=== PATIENT | female | born 1985 | race Caucasian/White ===

== ENCOUNTER 2023-06-23 10:10 | Outpatient (OUT) | payer MEDICAID, SELFPAY ==
--- NOTE | 2023-06-23 10:15 | US_ITS ---
The [address] [address] Patient Name: ADOLFO PRESTON MRN: [id number] date: 1985 Sex: F Assigned Patient Location: US Current Patient Location: US Accession/Order Number: [id number] Exam Date: 06/23/2023 10:17 Report Date: 06/23/2023 10:43 At the request of: DAVID SO Procedure: US extremity nonvascular LT EXAM: US extremity nonvascular LT HISTORY: Left arm skin lump R22.32 COMPARISON: None. TECHNIQUE: Real-time ultrasonographic examination of the upper left arm was performed, including color Doppler imaging. FINDINGS: There is a 6.1 x 4.9 x 1.8 cm well marginated isoechoic focus with good through transmission in the subcutaneous tissues in the region of interest, most likely representing a lipoma. No abnormal vascularity is seen. No evidence of abnormal fluid collection. US/US extremity nonvascular LT IMPRESSION: 6.1 x 4.9 x 1.8 cm probable lipoma in the area of interest in the left upper arm. Electronically authenticated by: MERLIN WATSON Date: 06/23/2023 10:43
== END 2023-06-23 10:11 | disposition home or self-care (01) ==
LOC: US 10:10
PROVIDERS: PCP Nurse Practitioner; Visit Provider Nurse Practitioner
DX: R22.32 Localized swelling, mass and lump, left upper limb (principal)
CPT/HCPCS: 76882

== ENCOUNTER 2023-06-23 10:28 | Outpatient (OUT) | payer MEDICAID, SELFPAY ==
[2023-06-23 13:51] LABS: Free T3 1.23 pg/mL (2.18-3.98); Thyroid Stimulating Hormone 13.814 uIU/mL (0.358-3.740)
[2023-06-23 14:10] LABS: Free T4 0.42 ng/dL (0.76-1.46)
== END 2023-06-23 10:29 | disposition home or self-care (01) ==
LOC: LAB 10:29
PROVIDERS: PCP Nurse Practitioner; Visit Provider Internal Medicine
DX: R22.32 Localized swelling, mass and lump, left upper limb (principal); E05.00 Thyrotoxicosis with diffuse goiter without thyrotoxic crisis or storm; E55.9 Vitamin D deficiency, unspecified
CPT/HCPCS: 36415; 76882; 82306; 84439; 84443; 84481

== ENCOUNTER 2023-08-18 19:08 | Outpatient (REF) | payer MEDICAID, SELFPAY ==
[2023-08-24 11:08] LABS: Age Gdln ACOG Testing Note (.); HPV Aptima Negative (Negative); IGP, Aptima HPV, rfx 16/18,45 Note (.)
== END 2023-08-18 19:09 | disposition home or self-care (01) ==
LOC: LAB 19:08
PROVIDERS: PCP Nurse Practitioner; Visit Provider Obstetrics & Gynecology
DX: Z01.419 Encounter for gynecological examination (general) (routine) without abnormal findings (principal)
CPT/HCPCS: 87624; G0145

== ENCOUNTER 2023-12-17 10:10 | Outpatient (OUT) | payer MEDICAID, SELFPAY ==
--- OUTSIDE RECORDS SUMMARY | 2023-12-17 10:14 | XMS_ITS | CCD ---
Author Name Unknown Address [address] [place] [address] Organization [facility] Care Team Providers Care Pharmaceutical Salesperson Name Role Phone Annemarie Prater Unavailable Debby, Elfego Unavailable [phone] Rosa Olivo Unavailable AICHHOLZ, BIOLOGICAL SCIENCE TECHNICIAN FISH DAVID Attending Unavailable AICHHOLZ, BIOLOGICAL SCIENCE TECHNICIAN FISH DAVID Admitting Unavailable AICHHOLZ, BIOLOGICAL SCIENCE TECHNICIAN FISH DAVID Primary Care Unavailable AICHHOLZ, BIOLOGICAL SCIENCE TECHNICIAN FISH DAVID Consulting Unavailable AICHHOLZ, BIOLOGICAL SCIENCE TECHNICIAN FISH DAVID Primary Care Unavailable BERYL, DR BELKIS Perkins Consulting Unavaileugene e BERYL, DR BELKIS Perkins Attending Unavaileugene CORDOBA, DR BELKIS Perkins Admitting Unavailabl e DEEPAK WILLIAMSON Consulting Unavailable AICHHOLZ, BIOLOGICAL SCIENCE TECHNICIAN FISH DAVID Primary Care Unavailable JAGJIT ., DR GALVAN Admitting Unavailable JAGJIT ., DR GALVAN Consulting Unavailable JAGJIT ., DR GALVAN Attending Unavailable JAGJIT ., DR GALVAN Admitting Unavailable JAGJIT ., DR GALVAN Attending Unavailable AICHHOLZ, BIOLOGICAL SCIENCE TECHNICIAN FISH DAVID Primary Care Unavailable AICHHOLZ, BIOLOGICAL SCIENCE TECHNICIAN FISH DAVID Primary Care Unavailable JAGJIT ., DR GALVAN Admitting Unavailable JAGJIT ., DR GALVAN Consulting Unavailable JAGJIT ., DR GALVAN Attending Unavailable AGUBOSIM, ANABELLA Consulting Unavailable HEAVENLY AMATO Consulting Unavailable JUNGERMANN, ANTONINO Consulting Unavailable AICHHOLZ, BIOLOGICAL SCIENCE TECHNICIAN FISH DAVID Attending Unavailable AICHHOLZ, BIOLOGICAL SCIENCE TECHNICIAN FISH DAVID Admitting Unavailable AICHHOLZ, BIOLOGICAL SCIENCE TECHNICIAN FISH DAVID Primary Care Unavailable AICHHOLZ, BIOLOGICAL SCIENCE TECHNICIAN FISH DAVID Consulting Unavailable AICHHOLZ, BIOLOGICAL SCIENCE TECHNICIAN FISH DAVID Attending Unavailable AICHHOLZ, BIOLOGICAL SCIENCE TECHNICIAN FISH DAVID Admitting Unavailable AICHHOLZ, BIOLOGICAL SCIENCE TECHNICIAN FISH DAVID Primary Care Unavailable AICHHOLZ, BIOLOGICAL SCIENCE TECHNICIAN FISH DAVID Consulting Unavailable AKI ARZATE Consulting Unavailable AICHHOLZ, BIOLOGICAL SCIENCE TECHNICIAN FISH DAVID Consulting Unavailable AICHHOLZ, BIOLOGICAL SCIENCE TECHNICIAN FISH DAVID Attending Unavailable OLVINHOLJosephine, PRASHANTH DAVID Admitting Unavailable OLVINHOLZ, BIOLOGICAL SCIENCE TECHNICIAN FISH DAVID Primary Care Unavailable OLVINHOLZ, BIOLOGICAL SCIENCE TECHNICIAN FISH DAVID Consulting Unavailable OLVINHOLJosephine, BIOLOGICAL SCIENCE TECHNICIAN FISH DAVID Attending Unavailable OLVINHOLJosephine, PRASHANTH DAVID Admitting Unavailable AICKaylaHOLZ, BIOLOGICAL SCIENCE TECHNICIAN FISH DAVID Primary Care Unavailable JAGJIT ., DR GALVAN Admitting Unavailable JAGJIT ., DR GALVAN Consulting Unavailable JAGJIT ., DR GALVAN Attending Unavailable SARAY, PRASHANTH DAVID Primary Care Unavailable Amy FREEMAN Attending Unavailable Marilu Bello Attending Unavailable MAUDE FLYNN Attending Unavailable Allergies Allergy Classification Reported Allergen(s) Allergy Type Date of Onset Reaction(s) Facility (6 sources) Penicillin G Drug Allergy rash/itching [facility] Other (1 source) Penicillins Drug allergy (disorder) 4 [facility] Repository Medications Current Medications Medication Drug Class(es) Dates Sig (Normalized) Sig (Original) Darlyn Allergy 180 MG (1 source) take 1 tablet by mouth once daily Darlyn Allergy 180 MG 1 tablet Swallow whole with water; do not take with fruit juices. Orally Once a day Active dexlansoprazole 60 mg delayed release oral capsule (1 source) Proton Pump Inhibitor Start: 04-16-2022 take 1 capsule by mouth every twenty-four hours Dexlansoprazole 60 MG 1 capsule Orally Once a day for 30 day(s) Mar, Active diclofenac sodium 75 mg delayed release oral tablet (2 sources) Nonsteroidal Anti-inflammatory Drug take 1 tablet by mouth every twelve hours dicyclomine hydrochloride 20 mg oral tablet (6 sources) Anticholinergic Start: 01-05-2020 take 1 tablet by mouth every eight hours Dicyclomine HCl 20 MG 1 tablet Orally Three times a day for 30 day(s) Dec, Active {21 (drospirenone 3 MG / ethinyl estradiol 0.03 MG Oral Tablet) / 7 (inert ingredients 1 MG Oral Tablet) } Pack [Ocella 28 Day] (1 source) Progestin, Estrogen take 1 tablet by mouth every twenty-four hours Ocella 3-0.03 MG 1 tablet Orally Once a day Active fluticasone propionate 0.05 mg/actuat metered dose nasal spray (6 sources) Corticosteroid Start: 09-05-2021 take 2 spray(s) nasal route once daily Fluticasone Propionate 50 MCG/ACT 2 sprays Nasally Once a day for 14 day(s) Aug, Active Start: 09-05-2021 take 2 spray(s) nasa l route once daily Fluticasone Propionate 50 MCG/ACT 2 sprays Nasally Once a day for 14 day(s) Aug, Active hydrocortisone 10 mg/ml / neomycin 3.5 mg/ml / polymyxin b 98237 unt/ml otic suspension (2 sources) Aminoglycoside Antibacterial, Polymyxin-class Antibacterial, Corticosteroid Start: 09-05-2021 Phaerjnz-Yiaeiktix-MX 3.5-21805-2 3 drops right ear Three times a day for 7 days Aug, Active hydrOXYzine hydrochloride 50 mg oral tablet (6 sources) Antihistamine hydrOXYzine HCl 50 MG 1 tablet as needed Orally prn Active Loratadine (2 sources) Loratadine Activ e Ocella (2 sources) Ocella Active pantoprazole 40 mg delayed release oral tablet (6 sources) Proton Pump Inhibitor Start: 01-05-2020 take 1 tablet by mouth every twelve hours Pantoprazole Sodium 40 MG 1 tablet Orally TWICE A DAY for 30 days Dec, Active predniSONE 20 mg oral tablet (2 sources) Start: 09-05-2021 take 1 tablet by mouth every twelve hours predniSONE 20 MG 1 tablet Orally bid for 5 day(s) Aug, Active sertraline 25 mg oral tablet (6 sources) Serotonin Reuptake Inhibitor take 1 tablet by mouth every twenty-fou r hours Zoloft 25 MG 1 tablet Orally Once a day Active SUMAtriptan 5 mg/actuat nasal spray (6 sources) Serotonin-1b and Serotonin-1d Receptor Agonist SUMAtriptan 5 MG/ACT 1 spray at onset of headache in one nostril may repeat dose after 2 hours as needed Nasally Once a day Active SUMAtriptan Acti ve vitamin b12 3 mg sublingual tablet (3 sources) Vitamin B12 Vitamin B12 3000 MCG as directed Sublingual Once a day Active Vitamin B12 Acti ve Vitamin B12 3000 MCG (3 sources) Vitamin B12 3000 MCG as directed Sublingual Once a day Active Completed/Discontinued Medications Medication Drug Class(es) Dates Sig (Normalized) Sig (Original) cyclobenzaprine hydrochloride 10 mg oral tablet (3 sources) Muscle Relaxant Start: 07-10-2022 take 1 tablet by mouth every eight hours as needed Cyclobenzaprine HCl 10 MG 1 tablet Orally every 8 hours as needed for 5 days Jun, Not-Taking/PRN methIMAzole 5 mg oral tablet (6 sources) Thyroid Hormone Synthesis Inhibitor take 1 tablet by mouth every other day as needed methIMAzole 5 MG 1 tablet Orally every other day Not-Taking/PRN methIMAzole Acti ve methylPREDNISolone 4 mg oral tablet (3 sources) Corticosteroid Start: 07-10-2022 methylPREDNISo lone 4 MG as directed Orally for daily dose take half with breakfast, half with dinner for 6 days Jun, Not-Taking/PRN Problems Active Problems Problem Classification Problem Date Documented Da te Episodic/Chronic Abdominal pain (11 sources) Abdominal pain; Translations: [Unspecified abdominal pain] Onset: 1 Resolved: 2 Episodic Anxiety disorders (1 source) Anxiety disorder, unspecified; Translations: [ANXIETY DISORDER UNSPECIFIED] Onset: 2 Chronic Esophageal disorders (8 sources) Gastroesophageal reflux disease; Translations: [Gastro-esophageal reflux disease without esophagitis] Onset: 2 Resolved: 2 Chronic Malaise and fatigue (1 source) Other fatigue; Translations: [OTHER FATIGUE] Onset: 3 Episodic Other connective tissue disease (1 source) Other muscle spasm Episodic Other ear and sense organ disorders (6 sources) Otitis externa; Translations: [Unspecified otitis externa, right ear] Chronic Other ear and sense organ disorders (1 source) Unspecified otitis externa, right ear Onset: 1 Resolved: 1 Chronic Other gastrointestinal disorders (1 source) Heartburn Episodic Other nutritional; endocrine; and metabolic disorders (1 source) Obesity, unspecified; Translations: [OBESITY UNSPECIFIED] Onset: 3 Chronic Other nutritional; endocrine; and metabolic disorders (1 source) Body mass index (BMI) 36.0-36.9, adult; Translations: [BODY MASS INDEX BMI 36.0-36.9 ADULT] Onset: 2 Chronic Other upper respiratory infections (9 sources) Acute sinusitis, unspecified; Translations: [Acute upper respiratory infection, unspecified] Onset: 1 Resolved: 1 Episodic Thyroid disorders (9 sources) Thyrotoxicosis, unspecified without thyrotoxic crisis or storm; 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] Onset: 2 Chronic Unclassified (3 sources) LOW BACK PAIN, UNSPECIFIED; Translations: [LOW BACK PAIN, UNSPECIFIED] Onset: 2 Unclassified (1 source) CONTACT W/AND (SUSP) EXPOS COVID-19; Translations: [CONTACT W/AND (SUSP) EXPOS COVID-19] Onset: 2 Past or Other Problems Problem Classification Problem Date Documented Date Episodic/Chronic Calculus of urinary tract (1 source) Personal history of urinary calculi; Translations: [PERSONAL HISTORY OF URINARY CALCULI] Onset: 09-30-2022 Episodic Contraceptive and procreative management (4 sources) Encounter for sterilization; Translations: [ENCOUNTER FOR STERILIZATION] Onset: 06-05-2022 Episodic Immunizations and screening for infectious disease (1 source) Encounter for screening for human papillomavirus (HPV); Translations: [ENC SCREENING HUMAN PAPILLOMAVIRUS] Onset: 05-07-2022 Episodic Nutritional deficiencies (1 source) Deficiency of other specified B group vitamins; Translations: [DEFICIENCY SPEC B GROUP VITAMINS] Onset: 06-10-2022 Episodic Other aftercare (1 source) Other terminal supervisor (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) 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; Translations: [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 THERAPY] Onset: 06-10-2022 Episodic Other screening for suspected conditions (not mental disorders or infectious disease) (4 sources) Encounter for screening for malignant neoplasm of cervix; Translations: [ENC SCREENING MALIG NEOPLASM CERV] Onset: 05-06-2022 Episodic Screening and history of mental health and substance abuse codes (1 source) Personal history of nicotine dependence; Translations: [PERSONAL HISTORY OF NICOTINE DEPEND] Onset: 09-30-2022 Episodic Unclassified (1 source) LOW BACK PAIN, UNSPECIFIED; Translations: [LOW BACK PAIN, UNSPECIFIED] Onset: 09-27-2022 Results Test Name Value Interpretation Reference Range Facility Consent for Flu Vaccineon Consent for Flu Vaccine [id number]#1.0 0TIFF Normal [facility] Quantiferon-TB Plus (Client Incubated)on 07-13-2023 Gamma interferon background IA Qn (Bld) 0.00 International_Unit/mL Invalid Interpretation Code [facility] Comment on above: Performed By: #### 3 [id number] #### [facility] [address] [place] [address] M. tuberculosis stim IFN-g by CD4+ CD8+ T-cells Qn (Bld) 0.05 International_Unit/mL Invalid Interpretation Code [facility] Comment on above: Performed By: #### 3 [id number] #### [facility] [address] [place] [address] M. tuberculosis stim IFN-g by CD4+ T-cells Qn (Bld) 0.02 International_Unit/mL Invalid Interpretation Code [facility] Comment on above: Performed By: #### 3 [id number] #### [facility] [address] [place] [address] M. tuberculosis stim IFN-g Ql (Bld) [Interp] Negative Invalid Interpretation Code Negative [facility] Comment on above: Result Comment: No r esponse to M tuberculosis antigens detected. Infection with M tuberculosis is unlikely, but high risk individuals should be considered for additional testing (ATS/IDSA/CDC Clinical Practice Guidelines, 2017). The reference range is an Antigen minus Nil result of <0.35 IU/mL. The specimen received for QuantiFERON testing was incubated by the ordering institution. Specific procedures outlined in our Directory of Services and in the package insert for the QuantiFERON Gold (In Tube) test must be followed to enable for proper stimulation of cells for the production of interferon gamma. Chemiluminescence immunoassay methodology Performed at: [facility] [address] [place] [address] [id number] PhD Onofre Dutta Performed By: #### 3 [id number], [id number] #### [facility] [address] [place] [address] Mitogen stimulated gamma interferon Qn (Bld) >10.00 Invalid Interpretation Code [facility] Comment on above: Performed By: #### 3 [id number], [id number] #### [facility] [address] [place] [address] Service comment (Unsp spec) [Interp] Comment Invalid Interpretation Code [facility] Comment on above: Result Comment: Ed tiFERON-TB Gold Plus is a qualitative indirect test for M tuberculosis infection (including disease) and is intended for use in conjunction with risk assessment, radiography, and other medical and diagnostic evaluations. The QuantiFERON-TB Gold Plus result is determined by subtracting the Nil value from either TB antigen (Ag) value. The Mitogen tube serves as a control for the test. Performed By: #### 3 [id number], [id number] #### [facility] [address] [place] [id number] Hep Bs Abon 07-10-2023 HBV surface Ab Ql (S) Reactive Invalid Interpretation Code [facility] Comment on above: Result Comment: Non Reactive: Inconsistent with immunity, less than 10 mIU/mL Reactive: Consistent with immunity, greater than 9.9 mIU/mL Performed at: [address] [id number] PhD Onofre Dutta Performed By: #### 3 [id number] #### [facility] [address] [place] [address] Measles/Mumps/Rubella Immuni tyon 07-10-2023 MeV IgG IA Qn (S) 74.1 A unit/mL Invalid Interpretation Code Immune >16.4 [facility] Comment on above: Result Comment: Nega tive <13.5 Equivocal 13.5 - 16.4 Positive >16.4 Presence of antibodies to Rubeola is presumptive evidence of immunity except when acute infection is suspected. Performed By: #### 3 [id number], [id number], [id number] #### [facility] [address] [place] [address] MuV IgG IA Qn (S) 113.0 A unit/mL Invalid Interpretation Code Immune >10.9 [facility] Comment on above: Result Comment: Nega tive <9.0 Equivocal 9.0 - 10.9 Positive >10.9 A positive result generally indicates past exposure to Mumps virus or previous vaccination. Performed at: [facility] [id number] [place], [place] [id number] PhD Onofre Dutta Performed By: #### 3 [id number], [id number], [id number] #### [facility] [address] [place] [address] Rubella virus IgG Qn (S) 3.34 [IU]/mL Invalid Interpretation Code Immune >0.99 [facility] Comment on above: Result Comment: Non- immune <0.90 Equivocal 0.90 - 0.99 Immune >0.99 Performed By: #### 3 [id number], [id number], [id number], [id number] #### [facility] [address] [place] [address] Varic IgGon 07-10-2023 VZV IgG IA Qn (S) 1305 Invalid Interpretation Code Immune >165 [facility] Comment on above: Result Comment: Nega tive <135 Equivocal 135 - 165 Positive >165 A positive result generally indicates exposure to the pathogen or administration of specific immunoglobulins, but it is not indication of active infection or stage of disease. Performed at: [facility] [address] [place] [address] [id number] PhD Onofre Dutta Performed By: #### 3 [id number], [id number], [id number], [id number] #### [facility] [address] [place] [address] UA RANDOM W/MICROSCOPICon BACTERIA NONE SEEN Normal NONE SEEN [facility] Comment on above: Performed By: #### U AMI #### [facility] [address] [address] [address] Kalin Farrell Bilirubin Ql (U) Negative Normal NEGATIVE [facility] Comment on above: Performed By: #### U AMIC #### [facility] [address] [address] [address] Kalin Farrell CAST NONE SEEN Normal NONE SEEN [facility] Comment on above: Performed By: #### U AMIC #### [facility] [address] [address] [address] Kalin Farrell Clarity (U) CLEAR Normal CLEAR [facility] Comment on above: Performed By: #### U AMIC #### [facility] [address] [address] [address] Kalin Farrell Color (U) LT. YELLOW Normal YELLOW [facility] Comment on above: Performed By: #### U AMIC #### [facility] [address] [place] [address] Dr. Kalin Farrell Crystals LM Nom (Urine sed) NONE SEEN Normal NONE SEEN [facility] Comment on above: Performed By: #### U AMIC #### [facility] [address] [place] [address] Dr. Kalin Farrell Epithelial cells LM Ql (Urine sed) RARE Normal NONE SEEN /RARE [facility] Comment on above: Performed By: #### U AMIC #### [facility] [address] [place] [address] Dr. Kalin Farrell Glucose Ql (U) Negative Normal NEGATIVE [facility] Comment on above: Performed By: #### U AMIC #### [facility] [address] [place] [address] Dr. Kalin Farrell Hemoglobin Ql (U) Negative Normal NEGATIVE [facility] Comment on above: Performed By: #### U AMIC #### [facility] [address] [address] [address] Kalin Farrell Ketones Ql (U) Negative Normal NEGATIVE [facility] Comment on above: Performed By: #### U AMIC #### [facility] [address] [place] [address] Dr. Kalin Farrell LEUKOCYTES Negative Normal NEGATIVE [facility] Comment on above: Performed By: #### U AMIC #### [facility] [address] [address] [address] Kalin Farrell MUCOUS NONE SEEN Normal NONE SEEN [facility] Comment on above: Performed By: #### U AMIC #### [facility] [address] [address] [address] Kalin Farrell Nitrite Ql (U) Negative Normal NEGATIVE [facility] Comment on above: Performed By: #### U AMIC #### [facility] [address] [address] [address] Kalin Farrell pH (U) 7.0 [pH] Normal 5-9 [facility] Comment on above: Performed By: #### U AMIC #### [facility] [address] [place] [address] Dr. Kalin Farrell RBC NONE SEEN Abnormal 0-2 [facility] Comment on above: Performed By: #### U AMIC #### [facility] [address] [place] [address] Dr. Kalin Farrell SPEC GRAVITY 1.005 Normal 1.005-<=1.[address] [facility] Comment on above: Performed By: #### U AMIC #### [facility] [address] [place] [address] Dr. Kalin Farrell UA PROTEIN Negative Normal NEGATIVE/ TRACE [facility] Comment on above: Performed By: #### U AMIC #### [facility] [address] [address] [address] Kalni Farrell Urobilinogen Qn (U) 0.2 {Rere'U}/dL Normal 0.2 - 1. 0 [facility] Comment on above: Performed By: #### U AMIC #### [facility] [address] [place] [address] Dr. Kalin Farrell WBC NONE SEEN Normal NONE SEEN [facility] Comment on above: Performed By: #### U AMIC #### [facility] [address] [place] [address] Dr. Kalin Farrell CBC AUTO DIFFon 02-23-2023 BASO # 0.0 103/ul Normal 0.0-0.1 [facility] Comment on above: Performed By: #### C BC #### [facility] [address] [place] [address] Dr. Kalin Farrell Basophils/100 WBC (Bld) 0.6 % Normal 0.2-2.0 [facility] Comment on above: Performed By: #### C BC #### [facility] [address] [place] [address] Dr. Kalin Farrell EO # 0.2 103/ul Normal 0.0-0.7 [facility] Comment on above: Performed By: #### C BC #### [facility] [address] [place] [address] Dr. Kalin Farrell Eosinophils/100 WBC (Bld) 2.8 % Normal 0.9-7.0 [facility] Comment on above: Performed By: #### C BC #### [facility] [address] [place] [address] Dr. Kalin Farrell Erythrocyte distribution width (RBC) [Ratio] 13.5 % Normal 11.0-15.0 [facility] Comment on above: Performed By: #### C BC #### [facility] [address] [place] [address] Dr. Kalin Farrell Hematocrit (Bld) [Volume fraction] 38.8 % Normal 36.0-48.0 [facility] Comment on above: Performed By: #### C BC #### [facility] [address] [place] [address] Dr. Kalin Farrell Hemoglobin (Bld) [Mass/Vol] 12.3 g/dL Normal 12.0-16.0 [facility] Comment on above: Performed By: #### C BC #### [facility] [address] [place] [address] Dr. Kalin Farrell IG # 0.02 10e3/ul Normal 0.00-0.03 [facility] Comment on above: Performed By: #### C BC #### [facility] [address] [place] [address] Dr. Kalin Farrell IG % 0.3 % Normal 0.0-0.5 [facility] Comment on above: Performed By: #### C BC #### [facility] [address] [place] [address] Dr. Kalin Farrell LYMPH # 2.5 103/ul Normal 1.2-3.8 [facility] Comment on above: Performed By: #### C BC #### [facility] [address] [place] [address] Dr. Kalin Farrell Lymphocytes/100 WBC (Bld) 39.0 % Normal 20.5-60.0 [facility] Comment on above: Performed By: #### C BC #### [facility] [address] [place] [address] Dr. Kalin Farrell MANUAL DIFF REQ NO Normal [facility] Comment on above: Performed By: #### C BC #### [facility] [address] [place] [address] Dr. Kalin Farrell MCH (RBC) [Entitic mass] 27.5 pg Normal 26.7-34.0 [facility] Comment on above: Performed By: #### C BC #### [facility] [address] [place] [address] Dr. Kalin Farrell MCHC (RBC) [Mass/Vol] 31.7 g/dL Normal 29.9-35.2 [facility] [facility] Comment on above: Performed By: #### C BC #### [facility] [address] [place] [address] Dr. Kalin Farrell MCV (RBC) [Entitic vol] 86.8 fL Normal 81.0-99.0 [facility] Comment on above: Performed By: #### C BC #### [facility] [address] [place] [address] Dr. Kalin Farrell MONO # 0.4 103/ul Normal 0.3-0.8 [facility] Comment on above: Performed By: #### C BC #### [facility] [address] [place] [address] Dr. Kalin Farrell Monocytes/100 WBC (Bld) 6.8 % Normal 1.7-12.0 [facility] Comment on above: Performed By: #### C BC #### [facility] [address] [place] [address] Dr. Kalin Farrell NEUT # 3.3 103/ul Normal 1.4-6.5 [facility] Comment on above: Performed By: #### C BC #### [facility] [address] [place] [address] Dr. Kalin Farrell Neutrophils/100 WBC (Bld) 50.5 % Normal 43.0-75.0 [facility] Comment on above: Performed By: #### C BC #### [facility] [address] [place] [address] Dr. Kalin Farrell Platelet mean volume (Bld) [Entitic vol] 8.7 fL Critically low 9.5-13.5 [facility] Comment on above: Performed By: #### C BC #### [facility] [address] [place] [address] Dr. Kalin Farrell PLT 335 103/ul Normal 150-450 [facility] Comment on above: Performed By: #### C BC #### [facility] [address] [place] [address] Dr. Kalin Farrell RBC 4.47 106/ul Normal 4.20-5.40 [facility] Comment on above: Performed By: #### C BC #### [facility] [address] [place] [address] Dr. Kalin Farrell WBC 6.5 103/ul Normal 4.0-11.0 [facility] Comment on above: Performed By: #### C BC #### [facility] [address] [place] [address] Dr. Kalin Farrell FREE T3on 02-23-2023 FREE T3 2.66 pg/mlL Normal 2.18-3.98 [facility] Comment on above: Performed By: #### [id number] #### [facility] [address] [place] [address] Dr. Kalin Farrell FREE T4on 02-23-2023 Free T4 [Mass/Vol] 0.98 ng/dL Normal 0.76-1.46 [facility] Comment on above: Performed By: #### F T4 #### [facility] [address] [address] [address] Kalin Farrell GLYCOHEMOGLOBIN A1Con 2022 ADA RECOMMENDATION SEE BELOW Normal [facility] Comment on above: Result Comment: ADA RECOMMENDED LIMIT 4.0 - 6.0 ADA THERAPEUTIC TARGET < 7.0 ACTION SUGGESTED > 7.0 Performed By: #### A 1C #### [facility] [address] [address] [address] Kalin Farrell Glucose [Mass/Vol] 94 mg/dL Normal [facility] Comment on above: Performed By: #### A 1C #### [facility] [address] [place] [address] Dr. Kalin Farrell HbA1c (Bld) [Mass fraction] 4.9 % Normal 4.5-6.2 [facility] Comment on above: Performed By: #### A 1C #### [facility] [address] [place] [address] Dr. Kalin Farrell LIPID PROFILEon 02-23-2023 CHOL-HDL RATIO NORM SEE BELOW Normal [facility] Comment on above: Result Comment: 3.3 - 4.4 LOW RISK 4.4 - 7.1 AVERAGE RISK 7.1 - 11.0 MODERATE RISK >11.0 HIGH RISK Performed By: #### [id number] #### [facility] [address] [place] [address] Dr. Kalin Farrell Cholesterol [Mass/Vol] 209 mg/dL Critically high <=200 [facility] Comment on above: Performed By: #### [id number] #### [facility] [address] [address] [address] Kalin Farrell Cholesterol in HDL [Mass/Vol] 71 mg/dL Critically high 40-60 [facility] Comment on above: Performed By: #### [id number] #### [facility] [address] [place] [address] Dr. Kalin Farrell Cholesterol in LDL [Mass/Vol] 126.8 mg/dL Normal [facility] Comment on above: Performed By: #### [id number] #### [facility] [address] [address] [address] Kalin Farrell Cholesterol.total/Ch olesterol in HDL [Mass ratio] 2.9 {ratio} Normal [facility] Comment on above: Performed By: #### [id number] #### [facility] [address] [address] [address] Kalin Farrell HDL NORMAL > or = 60 mg/dl - LO W CARDIOVASCULAR RISK <40 mg/dl - HIGH CARDIOVASCULAR RISK Normal [facility] Comment on above: Performed By: #### [id number] #### [facility] [address] [address] [address] Kalin Farrell LDL CALC NORMAL SEE BELOW Normal [facility] Comment on above: Result Comment: <100 mg/dl OPTIMAL 100 - 129 mg/dl NEAR OR ABOVE OPTIMAL 130 - 159 mg/dl BORDERLINE HIGH 160 - 189 mg/dl HIGH >190 mg/dl VERY HIGH Performed By: #### [id number] #### [facility] [address] [place] [address] Dr. Kalin Farrell Triglyceride [Mass/Vol] 56 mg/dL Normal <=150 [facility] Comment on above: Performed By: #### [id number] #### [facility] [address] [place] [address] Dr. Kalin Farrell VLDL CALC 11.2 mg/dL Normal [facility] Comment on above: Performed By: #### [id number] #### [facility] [address] [address] [address] Kalin Farrell PROF 14(COMP METB)on 023 Albumin [Mass/Vol] 3.5 g/dL Normal 3.4-5.0 [facility] Comment on above: Performed By: #### T SH, FT3, CMP, LIPID #### [facility] [address] [address] [address] Kalin Farrell Albumin/Globulin [Mass ratio] 0.9 {ratio} Normal [facility] Comment on above: Performed By: #### T SH, FT3, CMP, LIPID #### [facility] [address] [address] [address] Kalin Farrell ALP [Catalytic activity/Vol] 65 U/L Normal 46-116 [facility] Comment on above: Performed By: #### T SH, FT3, CMP, LIPID #### [facility] [address] [address] [address] Kalin Farrell ALT [Catalytic activity/Vol] 27 U/L Normal 14-59 [facility] Comment on above: Performed By: #### T SH, FT3, CMP, LIPID #### [facility] [address] [address] [address] Kalin Farrell Anion gap [Moles/Vol] 10.3 mmol/L Normal [facility] Comment on above: Performed By: #### T SH, FT3, CMP, LIPID #### [facility] [address] [place] [address] Dr. Kalin Farrell AST [Catalytic activity/Vol] 16 U/L Normal 15-37 [facility] Comment on above: Performed By: #### T SH, FT3, CMP, LIPID #### [facility] [address] [address] [address] Kalin Farrell Bilirubin [Mass/Vol] 0.5 mg/dL Normal 0.2-1.0 [facility] Comment on above: Performed By: #### T SH, FT3, CMP, LIPID #### [facility] [address] [address] [address] Kalin Farrell Calcium [Mass/Vol] 8.7 mg/dL Normal 8.5-10.1 [facility] Comment on above: Performed By: #### T SH, FT3, CMP, LIPID #### [facility] [address] [address] [address] Kalin Farrell Chloride [Moles/Vol] 107 mmol/L Normal 98-107 [facility] Comment on above: Performed By: #### T SH, FT3, CMP, LIPID #### [facility] [address] [address] [address] Kalin Farrell CO2 [Moles/Vol] 27.5 mmol/L Normal 21.0-32.[address] [facility] Comment on above: Performed By: #### T SH, FT3, CMP, LIPID #### [facility] [address] [place] [address] Dr. Kalin Farrell Creatinine [Mass/Vol] 0.86 mg/dL Normal 0.55-1.02 [facility] Comment on above: Performed By: #### T SH, FT3, CMP, LIPID #### [facility] [address] [address] [address] Kalin Farrell EGFR-AF MONEGASQUE >60 Normal >=60 [facility] Comment on above: Performed By: #### T SH, FT3, CMP, LIPID #### [facility] [address] [place] [address] Dr. Kalin Farrell EGFR-NON AF MONEGASQUE >60 Normal >=60 [facility] Comment on above: Performed By: #### T SH, FT3, CMP, LIPID #### [facility] [address] [place] [address] Dr. Kalin Farrell Globulin (S) [Mass/Vol] 4.0 g/dL Normal [facility] Comment on above: Performed By: #### T SH, FT3, CMP, LIPID #### [facility] [address] [place] [address] Dr. Kalin Farrell Glucose [Mass/Vol] 99 mg/dL Normal 74-106 [facility] Comment on above: Performed By: #### T SH, FT3, CMP, LIPID #### [facility] [address] [place] [address] Dr. Kalin Farrell Potassium [Moles/Vol] 3.8 mmol/L Normal 3.5-5.1 [facility] Comment on above: Performed By: #### T SH, FT3, CMP, LIPID #### [facility] [address] [place] [address] Dr. Kalin Farrell Protein [Mass/Vol] 7.5 g/dL Normal 6.4-8.2 [facility] Comment on above: Performed By: #### T SH, FT3, CMP, LIPID #### [facility] [address] [address] [address] Kalin Farrell Sodium [Moles/Vol] 141 mmol/L Normal 136-145 [facility] Comment on above: Performed By: #### T SH, FT3, CMP, LIPID #### [facility] [address] [address] [address] Kalin Farrell Urea nitrogen [Mass/Vol] 13.0 mg/dL Normal 7.0-18.0 [facility] Comment on above: Performed By: #### T SH, FT3, CMP, LIPID #### [facility] [address] [address] [address] Kalin Farrell Urea nitrogen/Creatinine [Mass ratio] 15.1 mg/mg Normal [facility] Comment on above: Performed By: #### T SH, FT3, CMP, LIPID #### [facility] [address] [address] [address] Kalin Farrell TSHon 02-23-2023 TSH 1.804 uIU/mL Normal 0.358-3.[address] [facility] Comment on above: Performed By: #### [id number] #### [facility] [address] [place] [address] Dr. Kalin Farrell XR CHEST 2 Von 01-18-2023 XR CHEST 2 V EXAM: XR CHEST 2 V HISTORY: Acute upper respiratory infection COMPARISON: None. TECHNIQUE: PA and lateral views of the chest. FINDINGS: The cardiomediastinal silhouette is normal. No focal consolidation is identified. There is no pneumothorax. No pleural effusion is noted. The osseous structures are intact. IMPRESSION: No acute cardiopulmonary process. Electronically authenticated by: AKI ARZATE Date: 2023-01-18 11:44 Normal [facility] CULTURE THROATon 01-17-2023 CULTURE THROAT Isolate 1 Streptococcus agalactiae Moderate growth of ORGANISM 1 Streptococcus agalactiae ANTIBIOTIC M.I.C RX STATUS Benzylpenicillin 0.12 S F Ampicillin <=0.25 S F Cefotaxime <=0.12 S F Ceftriaxone <=0.12 S F Levofloxacin 1 S F Inducible Clindamycin Resistance Neg NEG F Erythromycin 4 R F Clindamycin <=0.25 S F Linezolid <=2 S F Vancomycin 0.5 S F Tetracycline >=16 R F Normal [facility] Comment on above: Performed By: #### [id number] #### [facility] [address] [place] [address] ABD/PELVIS WO CONon 09-27 CT ABD/PELVIS WO CON EXAM: CT ABD/PELVIS WO CON INDICATION: CALCULUS OF KIDNEY. COMPARISON: CT abdomen pelvis 12/25/2019 TECHNIQUE: Multiple contiguous axial CT images of the abdomen and pelvis were obtained without the use of intravenous contrast. Sagittal and coronal reconstructions were performed. Dose reduction techniques were achieved by using: automated exposure control and/or adjustment of mA and /or kV according to patient size and/or use of iterative reconstruction technique. FINDINGS: Evaluation of visceral organs limited by noncontrast technique. LOWER CHEST: Clear lung bases. The heart is normal in size. No pericardial or pleural effusion. ABDOMEN: No renal, ureteral, or bladder calculi. No hydronephrosis or perinephric fatty stranding. Unremarkable liver, gallbladder, pancreas spleen, and adrenal glands. Normal caliber bowel without wall thickening or inflammation. A few noninflamed colonic diverticula. Normal appendix. Nonaneurysmal abdominal aorta. No adenopathy or ascites. PELVIS: Unremarkable uterus, ovaries, and bladder. No free pelvic fluid or adenopathy. MUSCULOSKELETAL: No acute osseous abnormality or suspicious osseous lesion. Small fat-containing umbilical hernia. IMPRESSION: No acute abdominal or pelvic process. No collecting system stone or hydronephrosis. Electronically authenticated by: DEEPAK WILLIAMSON Date: 2022-09-27 13:35 Normal [facility] CULTURE URINEon 09-27-2022 CULTURE URINE Culture Observations : NO GROWTH. Normal [facility] Comment on above: Performed By: #### [id number] #### [facility] [address] [place] [address] Dr. Kalin Farrell ER URINE PROFILEon 2 Bilirubin Ql (U) Negative Normal NEGATIVE [facility] Comment on above: Performed By: #### P REGU, UMICRO, ERUR #### [facility] [address] [place] [address] Dr. Kalin Farrell Clarity (U) CLEAR Normal CLEAR [facility] Comment on above: Performed By: #### P REGU, UMICRO, ERUR #### [facility] [address] [address] [address] Kalin Farrell Color (U) LT. YELLOW Normal YELLOW [facility] Comment on above: Performed By: #### P REGU, UMICRO, ERUR #### [facility] [address] [address] [address] Kalin Farrell ERUAHD A micrscopic examination will be performed if indicated. Normal [facility] Comment on above: Performed By: #### P REGU, UMICRO, ERUR #### [facility] [address] [address] [address] Kalin Farrell Glucose Ql (U) Negative Normal NEGATIVE [facility] Comment on above: Performed By: #### P REGU, UMICRO, ERUR #### [facility] [address] [address] [address] Kalin Farrell Hemoglobin Ql (U) LARGE Abnormal NEGATIVE [facility] Comment on above: Performed By: #### P REGU, UMICRO, ERUR #### [facility] [address] [address] [address] Kalin Farrell Ketones Ql (U) Negative Normal NEGATIVE [facility] Comment on above: Performed By: #### P REGU, UMICRO, ERUR #### [facility] [address] [address] [address] Kalin Farrell LEUKOCYTES Negative Normal NEGATIVE [facility] Comment on above: Performed By: #### P REGU, UMICRO, ERUR #### [facility] [address] [address] [address] Kalin Farrell Nitrite Ql (U) Positive Abnormal NEGATIVE [facility] Comment on above: Performed By: #### P REGU, UMICRO, ERUR #### [facility] [address] [address] [address] Kalin Farrell pH (U) 6.0 [pH] Normal 5-9 [facility] Comment on above: Performed By: #### P REGU, UMICRO, ERUR #### [facility] [address] [address] [address] Kalin Farrell SPEC GRAVITY 1.010 Normal 1.005-<=1.[address] [facility] Comment on above: Performed By: #### P REGU, UMICRO, ERUR #### [facility] [address] [address] [address] Kalin Farrell UA PROTEIN Negative Normal NEGATIVE/ TRACE [facility] Comment on above: Performed By: #### P REGU, UMICRO, ERUR #### [facility] [address] [place] [address] Dr. Kalin Farrell UR MICRO IND INDICATED Normal [facility] Comment on above: Performed By: #### P REGU, UMICRO, ERUR #### [facility] [address] [place] [address] Dr. Kalin Farrell Urobilinogen Qn (U) 0.2 {Rere'U}/dL Normal 0.2 - 1. 0 [facility] Comment on above: Performed By: #### P REGU, UMICRO, ERUR #### [facility] [address] [place] [address] Dr. Kalin Farrell URon 09-27-2022 , QUAL Negative Normal NEGATIVE [facility] Comment on above: Performed By: #### P REGU, UMICRO, ERUR #### [facility] [address] [place] [address] Dr. Kalin Farrell URINE MICROSCOPIC ONLYon BACTERIA TRACE Abnormal NONE SEEN [facility] Comment on above: Performed By: #### P REGU, UMICRO, ERUR #### [facility] [address] [place] [address] Dr. Kalin Farrell Bacteria identified Cx Nom (U) INDICATED Normal [facility] Comment on above: Performed By: #### P REGU, UMICRO, ERUR #### [facility] [address] [place] [address] Dr. Kalin Farrell CAST NONE SEEN Normal NONE SEEN [facility] Comment on above: Performed By: #### P REGU, UMICRO, ERUR #### [facility] [address] [address] [address] Kalin Farrell Crystals LM Nom (Urine sed) NONE SEEN Normal NONE SEEN [facility] Comment on above: Performed By: #### P REGU, UMICRO, ERUR #### [facility] [address] [address] [address] Kalin Farrell Epithelial cells LM Ql (Urine sed) FEW Abnormal NONE SEEN /RARE [facility] Comment on above: Performed By: #### P REGU, UMICRO, ERUR #### [facility] [address] [place] [address] Dr. Kalin Farrell MUCOUS NONE SEEN Normal NONE SEEN [facility] Comment on above: Performed By: #### P REGU, UMICRO, ERUR #### [facility] [address] [place] [address] Dr. Kalin Farrell RBC 10-20 Abnormal 0-2 [facility] Comment on above: Performed By: #### P REGU, UMICRO, ERUR #### [facility] [address] [place] [address] Dr. Kalni Farrell WBC NONE SEEN Normal NONE SEEN [facility] Comment on above: Performed By: #### P REGU, UMICRO, ERUR #### [facility] [address] [address] [address] Kalin Farrell FREE T3on 07-16-2022 FREE T3 2.00 pg/mlL Critically low 2.18-3.[address] [facility] Comment on above: Performed By: #### H CGSUB #### [facility] [address] [place] [address] Dr. Kalin Farrell FREE T4on 07-16-2022 Free T4 [Mass/Vol] 1.04 ng/dL Normal 0.76-1.46 [facility] Comment on above: Performed By: #### [id number] #### [facility] [address] [place] [address] Dr. Klain Farrell TSHon 07-16-2022 TSH 0.488 uIU/mL Normal 0.358-3.[address] [facility] Comment on above: Performed By: #### H CGSUB #### [facility] [address] [place] [address] Dr. Kalin Farrell HCG-BETA SUBUNIT QUANTon hCG,Beta Subunit,Qnt,Serum <1 Normal [facility] Comment on above: Result Comment: Fema le (Non-) 0 - 5 (Postmenopausal) 0 - 8 . Female () Weeks of Gestation 3 6 - 71 4 10 - 750 5 667 - 8732 6 346 - 73129 7 4320 -[id number] 8 14811 -003590 9 [id number] -[id number] 10 93845 -771197 12 35973 -993332 14 90096 - 89711 15 35750 - 70530 16 4524 - 58562 17 2435 - 12386 18 8428 - 38417 Josselin ECLIA methodology Performed By: #### H CGSUB #### [facility] [address] [place] [address] Dr. Kalin Farrell CBC AUTO DIFFon 06-03-2022 BASO # 0.0 103/ul Normal 0.0-0.1 [facility] Comment on above: Performed By: #### H CGSUB #### [facility] [address] [place] [address] Dr. Kalin Farrell Basophils/100 WBC (Bld) 0.5 % Normal 0.2-2.0 [facility] Comment on above: Performed By: #### H CGSUB #### [facility] [address] [place] [address] Dr. Kalin Farrell EO # 0.1 103/ul Normal 0.0-0.7 [facility] Comment on above: Performed By: #### H CGSUB #### [facility] [address] [place] [address] Dr. Kalin Farrell Eosinophils/100 WBC (Bld) 2.2 % Normal 0.9-7.0 [facility] Comment on above: Performed By: #### H CGSUB #### [facility] [address] [place] [address] Dr. Kalin Farrell Erythrocyte distribution width (RBC) [Ratio] 13.1 % Normal 11.0-15.0 [facility] Comment on above: Performed By: #### H CGSUB #### [facility] [address] [place] [address] Dr. Kalin Farrell Hematocrit (Bld) [Volume fraction] 39.1 % Normal 36.0-48.0 [facility] Comment on above: Performed By: #### H CGSUB #### [facility] [address] [place] [address] Dr. Kalin Farrell Hemoglobin (Bld) [Mass/Vol] 12.5 g/dL Normal 12.0-16.0 [facility] Comment on above: Performed By: #### H CGSUB #### [facility] [address] [place] [address] Dr. Kalin Farrell IG # 0.01 10e3/ul Normal 0.00-0.03 [facility] Comment on above: Performed By: #### H CGSUB #### [facility] [address] [place] [address] Dr. Kalin Farrell IG % 0.2 % Normal 0.0-0.5 [facility] Comment on above: Performed By: #### H CGSUB #### [facility] [address] [place] [address] Dr. Kalin Farrell LYMPH # 2.2 103/ul Normal 1.2-3.8 [facility] Comment on above: Performed By: #### H CGSUB #### [facility] [address] [place] [address] Dr. Kalin Farrell Lymphocytes/100 WBC (Bld) 38.6 % Normal 20.5-60.0 [facility] Comment on above: Performed By: #### H CGSUB #### [facility] [address] [place] [address] Dr. Kalin Farrell MANUAL DIFF REQ NO Normal [facility] Comment on above: Performed By: #### H CGSUB #### [facility] [address] [address] [address] Kalni Farrell MCH (RBC) [Entitic mass] 28.7 pg Normal 26.7-34.0 [facility] Comment on above: Performed By: #### H CGSUB #### [facility] [address] [place] [address] Dr. Kalin Farrell MCHC (RBC) [Mass/Vol] 32.0 g/dL Normal 29.9-35.2 [facility] Comment on above: Performed By: #### H CGSUB #### [facility] [address] [place] [address] Dr. Kalin Farrell MCV (RBC) [Entitic vol] 89.7 fL Normal 81.0-99.0 [facility] Comment on above: Performed By: #### H CGSUB #### [facility] [address] [place] [address] Dr. Kalin Farrell MONO # 0.3 103/ul Normal 0.3-0.8 [facility] Comment on above: Performed By: #### H CGSUB #### [facility] [address] [place] [address] Dr. Kalin Farrell Monocytes/100 WBC (Bld) 5.6 % Normal 1.7-12.0 [facility] Comment on above: Performed By: #### H CGSUB #### [facility] [address] [place] [address] Dr. Kalin Farrell NEUT # 3.0 103/ul Normal 1.4-6.5 [facility] Comment on above: Performed By: #### H CGSUB #### [facility] [address] [place] [address] Dr. Kalin Farrell Neutrophils/100 WBC (Bld) 52.9 % Normal 43.0-75.0 [facility] Comment on above: Performed By: #### H CGSUB #### [facility] [address] [place] [address] Dr. Kalin Farrell Platelet mean volume (Bld) [Entitic vol] 9.3 fL Critically low 9.5-13.5 [facility] Comment on above: Performed By: #### H CGSUB #### [facility] [address] [address] [address] Kalin Farrell PLT 302 103/ul Normal 150-450 [facility] Comment on above: Performed By: #### H CGSUB #### [facility] [address] [address] [address] Kalin Farrell RBC 4.36 106/ul Normal 4.20-5.40 [facility] Comment on above: Performed By: #### H CGSUB #### [facility] [address] [address] [address] Kalin Farrell WBC 5.6 103/ul Normal 4.0-11.0 [facility] Comment on above: Performed By: #### H CGSUB #### [facility] [address] [place] [address] Dr. Kalin Farrell Covid-19 PCR ([facility])on 05-18 SARS-CoV-2 (COVID-19) RNA KARINA+probe Ql (Unsp spec) Not detected Normal NOT DETECTED [facility] Comment on above: Result Comment: This test is not yet approved or cleared by the [place] FDA. When there are no FDA-approved or cleared tests available, and other criteria are met, FDA can make tests available under an emergency access mechanism called an Emergency Use Authorization (EUA). The EUA for this test is supported by the [place] of Health and Human Service's (HHS's) declaration that circumstances exist to justify the emergency use of in vitro diagnostics for the detection and/or diagnosis of the virus that causes COVID-19. This EUA will remain in effect (meaning this test can be used) for the duration of the COVID-19 declaration justifying emergency of IVDs, unless it is terminated or revoked by FDA (after which the test may no longer be used). When diagnostic testing is negative, the possibility of a false negative should be considered in the context of a patient's recent exposures and the presence of clinical signs and symptoms consistent with SARS-CoV-2. Performed By: #### [id number] #### [facility] [address] [place] [address] Dr. Kalin Farrell PAP ACOG PANEL 2: 30 to 65on 05-11-2022 . . Normal [facility] Comment on above: Result Comment: Perf ormed at: WB Performed By: #### [id number] #### [facility] [address] [address] [address] Kalin Farrell Age Gdln ACOG Testing 30-65 Normal [facility] Comment on above: Performed By: #### [id number] #### [facility] [address] [place] [address] Dr. Kalin Farrell DIAGNOSIS: Comment Normal [facility] Comment on above: Result Comment: NEGA TIVE FOR INTRAEPITHELIAL LESION OR MALIGNANCY. Performed at: WB Performed By: #### [id number] #### [facility] [address] [place] [address] Dr. Kalin Farrell HPV Aptima Negative Normal Negative [facility] Comment on above: Result Comment: This nucleic acid amplification test detects fourteen high-risk HPV types (16,18,31,33,35,39,45,51,52,56,58,59,66,68) without differentiation. Performed at: =G Performed By: #### [id number] #### [facility] [address] [place] [address] Dr. Kalin Farrell Methodology: Comment Normal [facility] Comment on above: Result Comment: This liquid based ThinPrep(R) pap test was screened with the use of an image guided system. Performed at: WB Performed By: #### [id number] #### [facility] [address] [place] [address] Dr. Kalin Farrell Note: Comment Normal [facility] Comment on above: Result Comment: The Pap smear is a screening test designed to aid in the detection of premalignant and malignant conditions of the uterine cervix. It is not a diagnostic procedure and should not be used as the sole means of detecting cervical cancer. Both false-positive and false-negative reports do occur. . Performed at: WB Performed By: #### [id number] #### [facility] [address] [place] [address] Dr. Kalin Farrell Performed by: Comment Normal [facility] Comment on above: Result Comment: Katiuska Kumar, Scrap Carrier Performed at: WB Performed By: #### [id number] #### [facility] [address] [address] [address] Kalin Farrell Specimen adequacy: Comment Normal [facility] Comment on above: Result Comment: Sati sfactory for evaluation. Endocervical and/or squamous metaplastic cells (endocervical component) are present. Performed at: WB Performed By: #### [id number] #### [facility] [address] [address] [address] Kalin Farrell Vital Signs Date Time Vital Sign Value Performing Clinician Facility 09-28-2023 14:00-0500 Body height 163.83 cm Elfego Guardado Other [email or web address] Other 09-28-2023 14:00-0500 Body mass index (BMI) [Ratio] 35.54 kg/m2 Elfego Guardado Other [email or web address] Other 09-28-2023 14:00-0500 Body weight 95.39 kg Elfego Guardado Other [email or web address] Other 09-28-2023 14:00-0500 Diastolic blood pressure 63 mm[Hg] Elfego Guardado Other [email or web address] Other 09-28-2023 14:00-0500 Systolic blood pressure 101 mm[Hg] Elfego Guardado Other [email or web address] Other 07-10-2022 13:50-0400 Body height 163.83 cm Rosa Olivo Other [email or web address] Other 07-10-2022 13:50-0400 Body mass index (BMI) [Ratio] 34.98 kg/m2 Rosa Olivo Other [email or web address] Other 07-10-2022 13:50-0400 Body temperature 98.1 [degF] Rosa Olivo Other [email or web address] Other 07-10-2022 13:50-0400 Body weight 93.9 kg Rosa Olivo Other [email or web address] Other 07-10-2022 13:50-0400 Diastolic blood pressure 64 mm[Hg] Rosa Olivo Other [email or web address] Other 07-10-2022 13:50-0400 Respiratory rate 18 /min Rosa Olivo Other [email or web address] Other 07-10-2022 13:50-0400 SaO2% (BldA) [Mass fraction] 98 % Rosa Olivo Other [email or web address] Other 07-10-2022 13:50-0400 Systolic blood pressure 107 mm[Hg] Rosa Olivo Other [email or web address] Other 04-16-2022 16:15-0400 Body height 163.83 cm Elfego Guardado Other [email or web address] Other 04-16-2022 16:15-0400 Body mass index (BMI) [Ratio] 34.98 kg/m2 Elfego Guardado Other [email or web address] Other 04-16-2022 16:15-0400 Body weight 93.9 kg Elfego Guardado Other [email or web address] Other 09-05-2021 12:20-0500 Body height 163.83 cm Annemarie Prater Other [email or web address] Other 09-05-2021 12:20-0500 Body mass index (BMI) [Ratio] 35.55 kg/m2 Annemarie Prater Other [email or web address] Other 09-05-2021 12:20-0500 Body temperature 98.9 [degF] Annemarie Prater Other [email or web address] Other 09-05-2021 12:20-0500 Body weight 95.44 kg Annemarie Prater Other [email or web address] Other 09-05-2021 12:20-0500 Diastolic blood pressure 66 mm[Hg] Annemarie Prater Other [email or web address] Other 09-05-2021 12:20-0500 Respiratory rate 18 /min Annemarie Prater Other [email or web address] Other 09-05-2021 12:20-0500 SaO2% (BldA) [Mass fraction] 100 % Annemarie Prater Other [email or web address] Other 09-05-2021 12:20-0500 Systolic blood pressure 108 mm[Hg] Annemarie Prater Other [email or web address] Other Encounters Encounter Date Encounter Type Care Provider Facility Start: 09-28-2023 End: 09-28-2023 ambulatory Elfego Guardado Other [email or web address] Other Start: 09-28-2023 Office outpatient vi sit 15 minutes Elfego Guardado [facility] Start: 08-31-2023 End: 08-31-2023 ambulatory MAUDE FLYNN Not Available Start: 08-16-2023 End: 10-31-2023 ambulatory Marilu Bello Facility:[facility] Start: 07-09-2023 End: 07-10-2023 ambulatory Amy FREEMAN Facility:[facility] Start: 03-03-2023 End: 03-03-2023 ambulatory BIOLOGICAL SCIENCE TECHNICIAN FISH DAVIDAlexandre SO Facility:[facility] Start: 02-23-2023 End: 02-24-2023 ambulatory BIOLOGICAL SCIENCE TECHNICIAN FISH DAVID RANCHOZ Facility:[facility] Start: 01-18-2023 End: 01-19-2023 ambulatory BIOLOGICAL SCIENCE TECHNICIAN FISH DAVID SARAY Facility:[facility] Start: 01-14-2023 End: 01-14-2023 ambulatory BIOLOGICAL SCIENCE TECHNICIAN FISH DAVID SARAY Facility:[facility] Start: 09-27-2022 End: 09-27-2022 ambulatory BIOLOGICAL SCIENCE TECHNICIAN FISH DAVID SARAY Facility:[facility] Start: 08-20-2022 End: 08-20-2022 ambulatory Elfego Guardado Other [email or web address] Other Start: 08-20-2022 Telephone encounter Elfego Sullivan [facility] Start: 07-16-2022 End: 07-17-2022 ambulatory BIOLOGICAL SCIENCE TECHNICIAN FISH DAVIDAlexandre SO Facility:[facility] Start: 07-10-2022 End: 07-10-2022 ambulatory Rosa Olivo Other [email or web address] Other Start: 07-10-2022 Office outpatient vi sit 25 minutes Rosa Olivo [facility] Start: 06-05-2022 End: 06-05-2022 ambulatory BIOLOGICAL SCIENCE TECHNICIAN FISH DAVID SARAY Facility:[facility] Start: 06-04-2022 Encounter for preprocedural laboratory examination DR MANDY NOE . [facility] Start: 06-03-2022 End: 06-04-2022 ambulatory BIOLOGICAL SCIENCE TECHNICIAN FISH DAVID SARAY Facility:[facility] Start: 06-03-2022 End: 06-04-2022 Encounter for preprocedural laboratory examination BIOLOGICAL SCIENCE TECHNICIAN FISH DAVID SARAY Facility:[facility] Start: 05-28-2022 Encounter for other preprocedural examination DR MANDY NOE . [facility] Start: 05-27-2022 End: 05-28-[address] MANDY NOE . Facility:[facility] Start: 05-27-2022 End: 05-28-2022 Encounter for other preprocedural examination DR MANDY NOE . Facility:[facility] Start: 05-06-2022 End: 05-06-[address] MANDY NOE . Facility:[facility] Start: 04-16-2022 End: 04-16-2022 ambulatory Elfego Guardado Other [email or web address] Other Start: 04-16-2022 Patient encounter procedure Elfego Guardado [facility] Start: 09-25-2021 End: 09-25-2021 ambulatory Elfego Guardado Other [email or web address] Other Start: 09-25-2021 Telephone encounter Elfego Nate ck [facility] Start: 09-05-2021 End: 09-05-2021 ambulatory Annemarie Prater Other [email or web address] Other Start: 09-05-2021 Office outpatient vi sit 15 minutes Annemarie Prater [facility] Payers Date Payer Category Payer Unknown [id number] 2018 Medicaid [id number] 1986 Unknown [id number] 2.16.84 [id number] 1986 Unknown [id number] 2.16.84 0.1.847709.3.579.2.59 1986 Unknown [id number] 2.16.84 0.1.347317.3.579.2.593 1986 Unknown [id number] .16.84 0.1.033483.3.579.2.59 1986 Unknown [id number] 2.16.84 0.1.309333.3.579.2.593 1986 Unknown [id number] 2.16.84 0.1.673454.3.579.2.593 1986 Unknown [id number] 2.16.84 0.1.367869.3.579.2.593 1986 Unknown [id number] 2.16.84 0.1.265332.3.579.2.593 1986 Unknown [id number] 2.16.84 0.1.588571.3.579.2.593 1986 Unknown [id number] 2.16.84 0.1.637500.3.579.2.593 1986 Unknown [id number] 2.16.8 40.1.931080.3.579.2.727 1986 Unknown [id number] 2.16.8 40.1.788478.3.579.2.727 1986 Unknown [id number] 2.16.8 40.1.787761.3.579.2.727 1986 Unknown [id number] 2.16.840. 1.962860.3.579.2.1259 1959 Unknown [id number] 2.1 [id number] 1959 Unknown [id number] Social History Date Type Detail Facility Unknown if ever smoked [email or web address] Other Sex Assigned At Sex Assigned At formerly [email or web address] Other Evaluation note 09-28-2023 Note Date & Type Note Facility 09-28-2023 Evaluation note Encounter Date Diagnosis Assessment Notes Sep, Abdominal pain (ICD-10 - R10.9) Pt states the diarrhea is better. Pt to proceed with colonoscopy. Sep, Heartburn (ICD-10 - R12) Pt to take Gaviscon [email or web address] Other Evaluation note 08-20-2022 Note Date & Type Note Facility 08-20-2022 Evaluation note Encounter Date Diagnosis Assessment Notes Aug, GERD (gastroesop hageal reflux disease) (ICD-10 - K21.9) [email or web address] Other Evaluation note 07-10-2022 Note Date & Type Note Facility 07-10-2022 Evaluation note Encounter Date Diagnosis Assessment Notes Jun, Cervical paraspinal muscle spasm (ICD-10 - M62.838) Discussed diagnosis with patient. Advised patient to take medications as directed. Advised patient that muscle relaxer may cause drowsiness. May use OTC Tylenol and icy hot application for additional relief. Encouraged warm compresses, light stretches, and massage may also help with pain. Avoid strenuous activity, perform activity as tolerated, do not stay stationary for long periods of time as it might make symptoms worse. Follow up with PCP in 1 week if symptoms do not improve. Immediate eval for chest pain, shortness of breath, fever, numbness or tingling, loss of bowel or bladder control, pain becomes severe, difficulty moving neck, back, arms or legs, dizziness, headache, or any other new or concerning symptoms arise. Patient verbalizes understanding and is agreeable to treatment plan [email or web address] Other Clinical Note 06-05-2022 Note Date & Type Note Facility 06-05-2022 Note OPERATIVE NOTE OPERATION DATE: 06/05/2022 PROCEDURE: Bilateral laparoscopic salpingectomy. PREOPERATIVE DIAGNOSIS: Desires permanent sterilization, pelvic pain. POSTOPERATIVE DIAGNOSIS: Desires permanent sterilization, pelvic pain. ANESTHESIA: General. SURGEON: Mandy Noe D.O. LATHE SETUP OPERATOR: KATHARINA Sims URINE OUTPUT: Yellow and clear. BLOOD LOSS: 5 mL. FINDINGS: Large fundal uterine fibroid taking approximately half of the uterus. PROCEDURE: The patient was taken back to the Operating Room where she was given general anesthesia without difficulty. She was then prepped and draped in the normal sterile fashion after being placed in a dorsal lithotomy position. A wet sponge stick was placed into the patient's vagina. Attention was then turned to the patient's abdomen, where a scalpel was used to make a small infraumbilical incision. The S retractors were then used to dissect the underlying layers until the fascia could be seen. The fascia was then grasped with Yue clamps and tented up. A knife was then used to make a small incision to the fascia. The muscle was identified, at that time two sutures of #0 Vicryl on a GI needle was then used and placed through the fascia. The peritoneum was then identified and entered bluntly. The 10-4 Ovi was then placed into the patient's abdomen. This was confirmed with direct visualization of the bowel, using the laparoscope. The patient's abdomen was then insufflated using approximately 4 liters of CO2 gas. Survey of the patient's abdomen demonstrated ovaries were normal in appearance as well as both tubes and uterus. A second and third rt and lt lateral ports which were 7-8 and 5 mm in size, was then placed after the skin incision was made under direct visualization The patient's tube on the patient's right side was identified and tented up using a grasper, the LigaSure apparatus was then used to come across the mesosalpinx from the fimbriated end to the insertion site at the uterus, the tube was then amputated and removed in its entirety. This was done on the contralateral side. The tubes were the removed from the patient's abdomen. Excellent hemostasis was noted. The lateral ports were then moved under direct visualization with excellent hemostasis. All instruments were removed from the patient's abdomen. The fascia was closed using the #0 Vicryl on GI needle. The skin was closed using 4-0 Vicryl subcuticularly. All instruments were removed from the patient's vagina as well. The patient was taken out of the dorsal lithotomy position and placed in the supine position and taken to recovery in stable condition. Sponge, lap and needle counts were correct x2. [facility] Evaluation note 04-16-2022 Note Date & Type Note Facility 04-16-2022 Evaluation note Encounter Date Diagnosis Assessment Notes Mar, GERD (gastroesopha geal reflux disease) (ICD-10 - K21.9) RTO 1 YR Mar, Abdominal pain (ICD-10 - R10.9) [email or web address] Other Evaluation note 09-25-2021 Note Date & Type Note Facility 09-25-2021 Evaluation note Encounter Date Diagnosis Assessment Notes Sep, Abdominal pain (ICD-10 - R10.9) [email or web address] Other Evaluation note 09-05-2021 Note Date & Type Note Facility 09-05-2021 Evaluation note Encounter Date Diagnosis Assessment Notes Aug, Otitis externa of right ear, unspecified chronicity, unspecified type (ICD-10 - H60.91) Aug, Acute sinusitis, recurrence not specified, unspecified location (ICD-10 - J01.90) Aug, Other Otitis externa material was printed [email or web address] Other History general Narrative - Reported Note Date & Type Note Facility History general Narrative - Reported Type Medical History graves disease Medical History Esophageal reflux Medical History migraines Hospitalization History child [email or web address] Other History general Narrative - Reported Note Date & Type Note Facility History general Narrative - Reported Type Medical History graves disease Medical History Esophageal reflux Medical History migraines Surgical History tubal ligation Surgical History laparoscopy Hospitalization History child [email or web address] Other Summary Purpose Family History No Family History Records FoundNo Family History Records FoundNo Family History Records Found Advance Directives No Advanced Directives Records FoundNo Advanced Directives Records FoundNo Advanced Directives Records Found Additional Source Comments REASON FOR VISIT (unrecogniz ed section and content) B/L EAR PAIN X 1WEEK , DIZZI NESSNo InformationFORMER [facility]. WANTS TO DISCUSS INCREASING PANTOPRAZOLERIGHT SHOULDER PAINMEDICATIONPatient complaining of abdominal pain INFORMATION SOURCE (unrecogn ized section and content) DATE CREATED AUTHOR 03/04/[address] [facility] DATE CREATED AUTHOR AUTHOR'S ORGANIZ ATION 08/18/2023 [facility] DATE CREATED AUTHOR AUTHOR'S ORGANIZ ATION 09/01/2023 [facility] FOR RECORDS PERTAINING TO PATIENTS WHO ARE OR HAVE BEEN ENROLLED IN A CHEMICAL DEPENDENCY/SUBSTANCEABUSE PROGRAM, SOME INFORMATION MAY BE OMITTED. This clinical summary was aggregated from multiple sources. Caution should be exercised in using it in the provision of clinical care. This summary normalizes information from multiple sources, and as a consequence, information in this document may materially change the coding, format and clinical context of patient data. In addition, data may be omitted in some cases. CLINICAL DECISIONS SHOULD BE BASED ON THE PRIMARY CLINICAL RECORDS. [employer] provides no warranty or guarantee of the accuracy or completeness of information in this document.
[2023-12-17 10:39] LABS: Basophils Percent Auto 0.6 % (0.2-2.0); Eosinophils Absolute Auto 0.1 10^3/uL (0.0-0.7); Eosinophils Percent Auto 2.2 % (0.9-7.0); Hemoglobin 12.1 g/dL (12.0-16.0); Immature Granulocytes Abs Auto 0.02 10^3/uL (0.00-0.03); Immature Granulocytes Pct Auto 0.4 % (0.0-0.5); Lymphocytes Percent Auto 39.5 % (20.5-60.0); Mean Corpuscular HGB Conc 31.8 g/dL (29.9-35.2); Mean Corpuscular Hemoglobin 27.4 pg (26.7-34.0); Mean Corpuscular Volume 86.2 fL (81.0-99.0); Mean Platelet Volume 9.2 fL (9.5-13.5); Monocytes Absolute Auto 0.4 10^3/uL (0.3-0.8); Monocytes Percent Auto 7.7 % (1.7-12.0); Neutrophils Absolute Auto 2.5 10^3/uL (1.4-6.5); Neutrophils Percent Auto 49.6 % (43.0-75.0); Platelet Count 298 10^3/uL (150-450); Red Blood Count 4.41 10^6/uL (4.20-5.40); Red Cell Distribution Width 12.7 % (11.0-15.0)
[2023-12-17 11:19] LABS: Alanine Aminotransferase 21 U/L (14-59); Albumin Globulin Ratio 0.9; Albumin Level 3.3 g/dL (3.4-5.0); Alkaline Phosphatase 70 U/L (46-116); Anion Gap 14.1; Aspartate Amino Transferase 14 U/L (15-37); Bilirubin Total 0.7 mg/dL (0.2-1.0); Calcium 8.8 mg/dL (8.5-10.1); Carbon Dioxide 25.6 mmol/L (21.0-32.0); Chloride 105 mmol/L (98-107); Estimated GFR (African America >60 (>=60); Estimated GFR (Non-African Ame >60 (>=60); Globulin 3.7 g/dL; Glucose 94 mg/dL (74-106); Potassium 3.7 mmol/L (3.5-5.1); Sodium 141 mmol/L (136-145); TSH W/ REFLEX FT4 <0.007 uIU/mL (0.358-3.740)
[2023-12-17 12:31] LABS: Free T4 1.43 ng/dL (0.76-1.46)
== END 2023-12-17 10:11 | disposition home or self-care (01) ==
PROVIDERS: PCP Nurse Practitioner; Visit Provider Nurse Practitioner
DX: E05.90 Thyrotoxicosis, unspecified without thyrotoxic crisis or storm (principal); E53.8 Deficiency of other specified B group vitamins; R79.89 Other specified abnormal findings of blood chemistry
CPT/HCPCS: 36415; 80053; 82607; 84439; 84443; 85025

== ENCOUNTER 2023-12-29 06:35 | Outpatient (OUT) | payer MEDICAID, SELFPAY ==
--- NOTE | 2023-12-29 06:38 | MR_ITS ---
[place] [id number] Patient Name: ADOLFO PRESTON MRN: [id number] date: 1985 Sex: F Assigned Patient Location: MRI Current Patient Location: MRI Accession/Order Number: [id number] Exam Date: 12/29/2023 06:55 Report Date: 12/29/2023 13:04 At the request of: MAUDE FLYNN Procedure: MR shoulder LT wo/w con EXAMINATION: MR shoulder LT wo/w con HISTORY: Lipoma Of Left Shoulder/bicep increasing in size , Chronic Left Shoulder Pain M25.512 COMPARISON: No relevant comparison available. TECHNIQUE: A variety of imaging planes and parameters were utilized for visualization of suspected pathology. Images were performed without and with ml intravenous Dotarem. FINDINGS: ROTATOR CUFF REGION CUFF TENDONS: No visible tendinitis or tear. CUFF MUSCLES: Normal appearing muscles. DELTOID: No significant atrophy or tear. LONG BICEPS TENDON: No abnormal signal, attrition, or tear. LABRUM/BICEPS ANCHOR SUPERIOR: No visible labral tear or biceps anchor pathology. ANTERIOR/INFERIOR: No visible tear or attrition. POSTERIOR: No posterior labrum abnormality. CAPSULE ANTERIOR/INFERIOR: Normal. No visible capsular laxity or thickening. Type I origin of the middle glenohumeral ligament. POSTERIOR: Normal. No visible capsular laxity or thickening. AC JOINT REGION AC JOINT: Normal acromioclavicular joint. AC LIGAMENTS: Normal acromioclavicular ligament. CC LIGAMENTS: Normal coracoclavicular ligaments. ACROMION: Normal horizontal (Type I) configuration. SUBACROMIAL BURSA: Normal. No significant effusion. HYALINE CARTILAGE: Normal. No visible cartilage narrowing or focal defect. OTHER BONES: Normal proximal humerus, glenoid, and coracoid. OTHER OBSERVATIONS: Very thin-wall encapsulated fatty mass lateral to the distal aspect of the deltoid muscle favoring a lipoma, 5.9 x 3.8 x 2.5 cm. No appreciable soft tissue component or enhancement. MR/MR shoulder LT wo/w con IMPRESSION: 1. Thin-walled fatty mass corresponding to patient's palpable lump most compatible with a benign lipoma. Electronically authenticated by: MARY HSU Date: 12/29/2023 13:04
--- OUTSIDE RECORDS SUMMARY | 2023-12-29 06:38 | XMS_ITS | CCD ---
Author Name Unknown Address [address] [place] [address] Organization [facility] Care Team Providers Care Bonding Supervisor Name Role Phone Annemarie Prater Unavailable Debby Elfego Unavailable OlivoRosa Unavailable AICHHOLZ, CURRICULUM AND INSTRUCTION SPECIALIST DAVID Attending Unavailable AICHHOLZ, CURRICULUM AND INSTRUCTION SPECIALIST DAVID Admitting Unavailable AICHHOLZ, CURRICULUM AND INSTRUCTION SPECIALIST DAVID Primary Care Unavailable AICHHOLZ, CURRICULUM AND INSTRUCTION SPECIALIST DAVID Consulting Unavailable AICHHOLZ, CURRICULUM AND INSTRUCTION SPECIALIST DAVID Primary Care Unavailable BERYL, DR BELKIS Perkins Consulting Unavaileugene e BERYL, DR BELKIS Perkins Attending Unavailabl e BERYL, DR BELKIS Perkins Admitting Unavailabl e DEEPAK WILLIAMSON Consulting Unavailable AICHHOLZ, CURRICULUM AND INSTRUCTION SPECIALIST DAVID Primary Care Unavailable JAGJIT ., DR GALVAN Admitting Unavailable JAGJIT ., DR GALVAN Consulting Unavailable JAGJIT ., DR GALVAN Attending Unavailable JAGJIT ., DR GALVAN Admitting Unavailable JAGJIT ., DR GALVAN Attending Unavailable AICHHOLZ, CURRICULUM AND INSTRUCTION SPECIALIST DAVID Primary Care Unavailable AICHHOLZ, CURRICULUM AND INSTRUCTION SPECIALIST DAVID Primary Care Unavailable JAGJIT ., DR GALVAN Admitting Unavailable JAGJIT ., DR GALVAN Consulting Unavailable JAGJIT ., DR GALVAN Attending Unavailable AGUBOSIM, ANABELLA Consulting Unavailable HEAVENLY AMATO Consulting Unavailable JUNGERMANN, ANTONINO Consulting Unavailable AICHHOLZ, CURRICULUM AND INSTRUCTION SPECIALIST DAVID Attending Unavailable AICHHOLZ, CURRICULUM AND INSTRUCTION SPECIALIST DAVID Admitting Unavailable AICHHOLZ, CURRICULUM AND INSTRUCTION SPECIALIST DAVID Primary Care Unavailable AICHHOLZ, CURRICULUM AND INSTRUCTION SPECIALIST DAVID Consulting Unavailable AICHHOLZ, CURRICULUM AND INSTRUCTION SPECIALIST DAVID Attending Unavailable AICHHOLZ, CURRICULUM AND INSTRUCTION SPECIALIST DAVID Admitting Unavailable AICHHOLZ, CURRICULUM AND INSTRUCTION SPECIALIST DAVID Primary Care Unavailable AICHHOLZ, CURRICULUM AND INSTRUCTION SPECIALIST DAVID Consulting Unavailable AKI ARZATE Consulting Unavailable AICHHOLZ, CURRICULUM AND INSTRUCTION SPECIALIST DAVID Consulting Unavailable AICHHOLZ, CURRICULUM AND INSTRUCTION SPECIALIST DAVID Attending Unavailable AICKaylaHOLZ, CURRICULUM AND INSTRUCTION SPECIALIST DAVID Admitting Unavailable AICHHOLZ, CURRICULUM AND INSTRUCTION SPECIALIST DAVID Primary Care Unavailable OLVINARIANA, PRASHANTH HSIEHA Consulting Unavailable OLVINARIANA, CURRICULUM AND INSTRUCTION SPECIALIST DAVID Attending Unavailable AICKaylaHOLZ, CURRICULUM AND INSTRUCTION SPECIALIST DAVID Admitting Unavailable AICKaylaHOLZ, CURRICULUM AND INSTRUCTION SPECIALIST DAVID Primary Care Unavailable JAGJIT ., DR GALVAN Admitting Unavailable JAGJIT ., DR GALVAN Consulting Unavailable JAGJIT ., DR GALVAN Attending Unavailable ASHLEYARIANA, PRASHANTH DAVID Primary Care Unavailable MAUDE FLYNN Attending Unavailable DAVID SO Attending Unavailable Regino SIMMONS Attending Unavailable Amy FREEMAN Attending Unavailable Marilu Bello Attending Unavailable Regino SIMMONS Attending Unavailable Allergies Allergy Classification Reported Allergen(s) Allergy Type Date of Onset Reaction(s) Facility (6 sources) Penicillin G Drug Allergy rash/itching [facility] Other (1 source) Penicillins Drug allergy (disorder) 4 [facility] Repository Medications Current Medications Medication Drug [...] / neomycin 3.5 mg/ml / polymyxin b 77530 unt/ml otic suspension (2 sources) Aminoglycoside Antibacterial, Polymyxin-class Antibacterial, Corticosteroid Start: 09-05-2021 Wmzptmbz-Naigfbkor-QX 3.5-31245-2 3 drops right ear Three times a [...] 06-10-2022 Episodic Other aftercare (1 source) Other long-term (current) 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; Translations: [OTH DETENTION CURRENT DRUG THERAPY] Onset: 06-10-2022 Episodic Other [...] Test Name Value Interpretation Reference Range Facility [facility] 12-22-2023 Consent [id number] .00TIFF Normal [facility] Consent [id number]. 00TIFF Normal [facility] Registrationon 12-22-2023 Registration [id number] .00TIFF Normal [facility] Consent for Flu Vaccineon Consent for Flu Vaccine [id number]#1.0 0TIFF Normal [facility] Quantiferon-TB Plus (Client Incubated)on 07-13-2023 Gamma interferon background IA Qn (Bld) 0.00 International_Unit/mL Invalid Interpretation Code [facility] Comment on above: Performed By: #### 3 [id number], [id number], [id number] #### [facility] [address] [place] [address] M. tuberculosis stim IFN-g by CD4+ CD8+ T-cells Qn (Bld) 0.05 International_Unit/mL Invalid Interpretation Code [facility] Comment on above: Performed By: #### 3 [id number], [id number], [id number], [id number] #### [facility] [address] [place] [address] M. tuberculosis stim IFN-g by CD4+ T-cells Qn (Bld) 0.02 International_Unit/mL Invalid Interpretation Code [facility] Comment on above: Performed By: #### 3 [id number], [id number], [id number], [id number] #### [facility] [address] [place] [address] M. tuberculosis stim IFN-g Ql (Bld) [Interp] Negative Invalid Interpretation Code Negative [facility] Comment on above: Result Comment: [...] interferon gamma. Chemiluminescence immunoassay methodology Performed at: [address] [id number] PhD Onofre Dutta Performed By: #### 3 [id number], [id number], [id number], [id number] #### [facility] [address] [place] [address] Mitogen stimulated gamma interferon Qn (Bld) >10.00 Invalid Interpretation Code [facility] Comment on above: Performed By: #### 3 [id number], [id number], [id number], [id number] #### [facility] [address] [place] [address] Service comment (Unsp spec) [Interp] Comment Invalid Interpretation Code [facility] Comment on above: Result Comment: [...] for the test. Performed By: #### 3 [id number], [id number], [id number], [id number] #### [facility] [address] [place] [address] Hep Bs Abon 07-10-2023 HBV surface Ab Ql (S) Reactive Invalid Interpretation Code [facility] Comment on above: Result Comment: Non Reactive: Inconsistent with immunity, less than 10 mIU/mL Reactive: Consistent with immunity, greater than 9.9 mIU/mL Performed at: [facility] [address] [place] [address] [id number] PhD Onofre Dutta Performed By: #### 3 [id number], [id number], [id number], [id number] #### [facility] [address] [place] [address] Measles/Mumps/Rubella Immuni tyon 07-10-2023 MeV IgG IA Qn (S) 74.1 A unit/mL Invalid Interpretation Code Immune >16.4 [facility] Comment on above: Result Comment: Nega tive <13.5 Equivocal 13.5 - 16.4 Positive >16.4 Presence of antibodies to Rubeola is presumptive evidence of immunity except when acute infection is suspected. Performed By: #### 3 [id number], [id number], [id number], [id number] #### [facility] [address] [place] [address] MuV IgG IA Qn (S) 113.0 A unit/mL Invalid Interpretation Code Immune >10.9 [facility] Comment on above: Result Comment: Nega tive <9.0 Equivocal 9.0 - 10.9 Positive >10.9 A positive result generally indicates past exposure to Mumps virus or previous vaccination. Performed at: [address] [id number] PhD Onofre Dutta Performed By: #### 3 [id number], [id number], [id number], [id number] #### [facility] [address] [place] [address] Rubella virus IgG Qn (S) 3.34 [IU]/mL Invalid Interpretation Code Immune >0.99 [facility] Comment on above: Result Comment: Non- immune <0.90 Equivocal 0.90 - 0.99 Immune >0.99 Performed By: #### 3 [id number], [id number], [id number], [id number] #### [facility] [address] [place] [address] Varic IgGon 07-10-2023 VZV IgG IA Qn (S) 1305 Invalid Interpretation Code Immune >165 [facility] Comment on above: Result Comment: Nega tive <135 Equivocal 135 - 165 Positive >165 A positive result generally indicates exposure to the pathogen or administration of specific immunoglobulins, but it is not indication of active infection or stage of disease. Performed at: [facility] [address], [place] [id number] PhD Onofre Dutta Performed By: #### 3 [id number], [id number], [id number], [id number] #### [facility] [address] [place] [address] UA RANDOM W/MICROSCOPICon BACTERIA NONE SEEN Normal NONE SEEN [facility] Comment on above: Performed By: #### U AMIC #### [facility] [address] [place] [address] Dr. Kalin Farrlel Bilirubin Ql (U) Negative Normal NEGATIVE [facility] Comment on above: Performed By: #### U AMIC #### [facility] [address] [place] [address] Dr. Kalin Farrell CAST NONE SEEN Normal NONE SEEN [facility] Comment on above: Performed By: #### U AMIC #### [facility] [address] [place] [address] Dr. Kalin Farrell Clarity (U) CLEAR Normal CLEAR [facility] Comment on above: Performed By: #### U AMIC #### [facility] [address] [place] [address] Dr. Kalin Farrell Color (U) LT. YELLOW Normal YELLOW [facility] Comment on above: Performed By: #### U AMIC #### [facility] [address] [place] [address] Dr. Kalin Farrell Crystals LM Nom (Urine sed) NONE SEEN Normal NONE SEEN [facility] Comment on above: Performed By: #### U AMIC #### [facility] [address] [place] [address] Dr. Kalin Farrell Epithelial cells LM Ql (Urine sed) RARE Normal NONE SEEN /RARE [facility] Comment on above: Performed By: #### U AMIC #### [facility] [address] [place] [address] Dr. Kalin Farrell Glucose Ql (U) Negative Normal NEGATIVE [facility] Comment on above: Performed By: #### U AMIC #### [facility] [address] [address] [address] Kalin Farrell Hemoglobin Ql (U) Negative Normal NEGATIVE [facility] Comment on above: Performed By: #### U AMIC #### [facility] [address] [address] [address] Kalin Farrell Ketones Ql (U) Negative Normal NEGATIVE [facility] Comment on above: Performed By: #### U AMIC #### [facility] [address] [address] [address] Kalin Farrell LEUKOCYTES Negative Normal NEGATIVE [facility] Comment on above: Performed By: #### U AMIC #### [facility] [address] [address] [address] Kalin Farrell MUCOUS NONE SEEN Normal NONE SEEN [facility] Comment on above: Performed By: #### U AMIC #### [facility] [address] [address] [address] Kalin Farrell Nitrite Ql (U) Negative Normal NEGATIVE [facility] Comment on above: Performed By: #### U AMIC #### [facility] [address] [address] [address] Kalin Farrell pH (U) 7.0 [pH] Normal 5-9 [facility] Comment on above: Performed By: #### U AMIC #### [facility] [address] [place] [address] Dr. Kalin Farrell RBC NONE SEEN Abnormal 0-2 [facility] Comment on above: Performed By: #### U AMIC #### [facility] [address] [place] [address] Dr. Kalin Farrell SPEC GRAVITY 1.005 Normal 1.005-<=1.025 [facility] Comment on above: Performed By: #### U AMIC #### [facility] [address] [place] [address] Dr. Kalin Farrell UA PROTEIN Negative Normal NEGATIVE/ TRACE [facility] Comment on above: Performed By: #### U AMIC #### [facility] [address] [place] [address] Dr. Kalin Farrell Urobilinogen Qn (U) 0.2 {Rere'U}/dL Normal 0.2 - 1. 0 [facility] Comment on above: Performed By: #### U AMIC #### [facility] [address] [place] [address] Dr. Kalin Farrell WBC NONE SEEN Normal NONE SEEN [facility] Comment on above: Performed By: #### U AMIC #### [facility] [address] [place] [address] Dr. Kalin Farrell CBC AUTO DIFFon 02-23-2023 BASO # 0.0 103/ul Normal 0.0-0.1 [facility] Comment on above: Performed By: #### C BC #### [facility] [address] [place] [address] Dr. Kalin Farrell Basophils/100 WBC (Bld) 0.6 % Normal 0.2-2.0 [facility] Comment on above: Performed By: #### C BC #### [facility] [address] [place] [address] Dr. Kalin Farrell EO # 0.2 103/ul Normal 0.0-0.7 [facility] Comment on above: Performed By: #### C BC #### [facility] [address] [place] [address] Dr. Kalin Farrell Eosinophils/100 WBC (Bld) 2.8 % Normal 0.9-7.0 [facility] Comment on above: Performed By: #### C BC #### [facility] [address] [place] [address] Dr. Kalin Farrell Erythrocyte distribution width (RBC) [Ratio] 13.5 % Normal 11.0-15.0 [facility] Comment on above: Performed By: #### C BC #### [facility] [address] [place] [address] Dr. Kalin Farrell Hematocrit (Bld) [Volume fraction] 38.8 % Normal 36.0-48.0 [facility] Comment on above: Performed By: #### C BC #### [facility] [address] [place] [address] Dr. Kalin Farrell Hemoglobin (Bld) [Mass/Vol] 12.3 g/dL Normal 12.0-16.0 [facility] Comment on above: Performed By: #### C BC #### [facility] [address] [place] [address] Dr. Kalin Farrell IG # 0.02 10e3/ul Normal 0.00-0.03 [facility] Comment on above: Performed By: #### C BC #### [facility] [address] [place] [address] Dr. Kalin Farrell IG % 0.3 % Normal 0.0-0.5 [facility] Comment on above: Performed By: #### C BC #### [facility] [address] [place] [address] Dr. Kailn Farrell LYMPH # 2.5 103/ul Normal 1.2-3.8 [facility] Comment on above: Performed By: #### C BC #### [facility] [address] [place] [address] Dr. Kalin Farrell Lymphocytes/100 WBC (Bld) 39.0 % Normal 20.5-60.0 [facility] Comment on above: Performed By: #### C BC #### [facility] [address] [place] [address] Dr. Kalin Farrell MANUAL DIFF REQ NO Normal [facility] Comment on above: Performed By: #### C BC #### [facility] [address] [place] [address] Dr. Kalin Farrell MCH (RBC) [Entitic mass] 27.5 pg Normal 26.7-34.0 [facility] Comment on above: Performed By: #### C BC #### [facility] [address] [place] [address] Dr. Kalin Farrlel MCHC (RBC) [Mass/Vol] 31.7 g/dL Normal 29.9-35.2 [facility] Comment on above: Performed By: #### C BC #### [facility] [address] [place] [address] Dr. Kalin Farrell MCV (RBC) [Entitic vol] 86.8 fL Normal 81.0-99.0 [facility] Comment on above: Performed By: #### C BC #### [facility] [address] [place] [address] Dr. Kalin Farrell MONO # 0.4 103/ul Normal 0.3-0.8 [facility] Comment on above: Performed By: #### C BC #### [facility] [address] [place] [address] Dr. Kalin Farrell Monocytes/100 WBC (Bld) 6.8 % Normal 1.7-12.0 [facility] Comment on above: Performed By: #### C BC #### [facility] [address] [place] [address] Dr. Kalin Farrell NEUT # 3.3 103/ul Normal 1.4-6.5 [facility] Comment on above: Performed By: #### C BC #### [facility] [address] [place] [address] Dr. Kalin Farrell Neutrophils/100 WBC (Bld) 50.5 % Normal 43.0-75.0 [facility] Comment on above: Performed By: #### C BC #### [facility] [address] [place] [address] Dr. Kalin Farrell Platelet mean volume (Bld) [Entitic vol] 8.7 fL Critically low 9.5-13.5 [facility] Comment on above: Performed By: #### C BC #### [facility] [address] [place] [address] Dr. Kalin Farrell PLT 335 103/ul Normal 150-450 [facility] Comment on above: Performed By: #### C BC #### [facility] [address] [place] [address] Dr. Kalin Farrell RBC 4.47 106/ul Normal 4.20-5.40 [facility] Comment on above: Performed By: #### C BC #### [facility] [address] [place] [address] Dr. Kalin Farrell WBC 6.5 103/ul Normal 4.0-11.0 [facility] Comment on above: Performed By: #### C BC #### [facility] [address] [address] [address] Kalin Farrell FREE T3on 02-23-2023 FREE T3 2.66 pg/mlL Normal 2.18-3.98 [facility] Comment on above: Performed By: #### 4 [id number] #### [facility] [address] [address] [address] Kalin Farrell FREE T4on 02-23-2023 Free T4 [Mass/Vol] 0.98 ng/dL Normal 0.76-1.46 [facility] Comment on above: Performed By: #### F T4 #### [facility] [address] [address] [address] Kalin Farrell GLYCOHEMOGLOBIN A1Con 2022 ADA RECOMMENDATION SEE BELOW Normal [facility] Comment on above: Result Comment: ADA RECOMMENDED LIMIT 4.0 - 6.0 ADA THERAPEUTIC TARGET < 7.0 ACTION SUGGESTED > 7.0 Performed By: #### A 1C #### [facility] [address] [address] [address] Kalin Farrell Glucose [Mass/Vol] 94 mg/dL Normal [facility] Comment on above: Performed By: #### A 1C #### [facility] [address] [place] [address] Dr. Kalin Farrell HbA1c (Bld) [Mass fraction] 4.9 % Normal 4.5-6.2 [facility] Comment on above: Performed By: #### A 1C #### [facility] [address] [address] [address] Kalin Farrell LIPID PROFILEon 02-23-2023 CHOL-HDL RATIO NORM SEE BELOW Normal [facility] Comment on above: Result Comment: 3.3 - 4.4 LOW RISK 4.4 - 7.1 AVERAGE RISK 7.1 - 11.0 MODERATE RISK >11.0 HIGH RISK Performed By: #### 4 [id number] #### [facility] [address] [place] [address] Dr. Kalin Farrell Cholesterol [Mass/Vol] 209 mg/dL Critically high <=200 [facility] Comment on above: Performed By: #### 4 [id number] #### [facility] [address] [address] [address] Kalin Farrell Cholesterol in HDL [Mass/Vol] 71 mg/dL Critically high 40-60 [facility] Comment on above: Performed By: #### 4 [id number] #### [facility] [address] [address] [address] Kalin Farrell Cholesterol in LDL [Mass/Vol] 126.8 mg/dL Normal [facility] Comment on above: Performed By: #### 4 [id number] #### [facility] [address] [address] [address] Kalin Farrell Cholesterol.total/Ch olesterol in HDL [Mass ratio] 2.9 {ratio} Normal [facility] Comment on above: Performed By: #### 4 [id number] #### [facility] [address] [place] [address] Dr. Kalin Farrell HDL NORMAL > or = 60 mg/dl - LO W CARDIOVASCULAR RISK <40 mg/dl - HIGH CARDIOVASCULAR RISK Normal [facility] Comment on above: Performed By: #### 4 [id number] #### [facility] [address] [place] [address] Dr. Kalin Farrell LDL CALC NORMAL SEE BELOW Normal [facility] Comment on above: Result Comment: <100 mg/dl OPTIMAL 100 - 129 mg/dl NEAR OR ABOVE OPTIMAL 130 - 159 mg/dl BORDERLINE HIGH 160 - 189 mg/dl HIGH >190 mg/dl VERY HIGH Performed By: #### 4 [id number] #### [facility] [address] [place] [address] Dr. Kalin Farrell Triglyceride [Mass/Vol] 56 mg/dL Normal <=150 [facility] Comment on above: Performed By: #### 4 [id number] #### [facility] [address] [place] [address] Dr. Kalin Farrell VLDL CALC 11.2 mg/dL Normal [facility] Comment on above: Performed By: #### 4 [id number] #### [facility] [address] [place] [address] Dr. Kalin Farrell PROF 14(COMP METB)on 023 Albumin [Mass/Vol] 3.5 g/dL Normal 3.4-5.0 [facility] Comment on above: Performed By: #### T SH, FT3, CMP, LIPID #### [facility] [address] [place] [address] Dr. Kalin Farrell Albumin/Globulin [Mass ratio] 0.9 {ratio} Normal [facility] Comment on above: Performed By: #### T SH, FT3, CMP, LIPID #### [facility] [address] [place] [address] Dr. Kalin Farrell ALP [Catalytic activity/Vol] 65 U/L Normal 46-116 [facility] Comment on above: Performed By: #### T SH, FT3, CMP, LIPID #### [facility] [address] [place] [address] Dr. Kalin Farrell ALT [Catalytic activity/Vol] 27 U/L Normal 14-59 [facility] Comment on above: Performed By: #### T SH, FT3, CMP, LIPID #### [facility] [address] [place] [address] Dr. Kalin Farrell Anion gap [Moles/Vol] 10.3 mmol/L Normal [facility] Comment on above: Performed By: #### T SH, FT3, CMP, LIPID #### [facility] [address] [place] [address] Dr. Kalin Farrell AST [Catalytic activity/Vol] 16 U/L Normal 15-37 [facility] Comment on above: Performed By: #### T SH, FT3, CMP, LIPID #### [facility] [address] [place] [address] Dr. Kalin Farrell Bilirubin [Mass/Vol] 0.5 mg/dL Normal 0.2-1.0 [facility] Comment on above: Performed By: #### T SH, FT3, CMP, LIPID #### [facility] [address] [place] [address] Dr. Kalin Farrell Calcium [Mass/Vol] 8.7 mg/dL Normal 8.5-10.1 [facility] Comment on above: Performed By: #### T SH, FT3, CMP, LIPID #### [facility] [address] [place] [address] Dr. Kalin Farrell Chloride [Moles/Vol] 107 mmol/L Normal 98-107 [facility] Comment on above: Performed By: #### T SH, FT3, CMP, LIPID #### [facility] [address] [address] [address] Kalin Farrell CO2 [Moles/Vol] 27.5 mmol/L Normal 21.0-32.0 [facility] Comment on above: Performed By: #### T SH, FT3, CMP, LIPID #### [facility] [address] [place] [address] Dr. Kalin Farrell Creatinine [Mass/Vol] 0.86 mg/dL Normal 0.55-1.02 [facility] Comment on above: Performed By: #### T SH, FT3, CMP, LIPID #### [facility] [address] [place] [address] Dr. Kalin Farrell EGFR-AF NIGERIEN >60 Normal >=60 [facility] Comment on above: Performed By: #### T SH, FT3, CMP, LIPID #### [facility] [address] [place] [address] Dr. Kalin Farrell EGFR-NON AF NIGERIEN >60 Normal >=60 [facility] Comment on above: Performed By: #### T SH, FT3, CMP, LIPID #### [facility] [address] [place] [address] Dr. Kalin Farrell Globulin (S) [Mass/Vol] 4.0 g/dL Normal [facility] Comment on above: Performed By: #### T SH, FT3, CMP, LIPID #### [facility] [address] [place] [address] Dr. Kalin Farrell Glucose [Mass/Vol] 99 mg/dL Normal 74-106 [facility] Comment on above: Performed By: #### T SH, FT3, CMP, LIPID #### [facility] [address] [place] [address] Dr. Kalin Farrell Potassium [Moles/Vol] 3.8 mmol/L Normal 3.5-5.1 [facility] Comment on above: Performed By: #### T SH, FT3, CMP, LIPID #### [facility] [address] [place] [address] Dr. Kalin Farrell Protein [Mass/Vol] 7.5 g/dL Normal 6.4-8.2 [facility] Comment on above: Performed By: #### T SH, FT3, CMP, LIPID #### [facility] [address] [place] [address] Dr. Kalin Farrell Sodium [Moles/Vol] 141 mmol/L Normal 136-145 [facility] Comment on above: Performed By: #### T SH, FT3, CMP, LIPID #### [facility] [address] [place] [address] Dr. Kalin Farrell Urea nitrogen [Mass/Vol] 13.0 mg/dL Normal 7.0-18.0 [facility] Comment on above: Performed By: #### T SH, FT3, CMP, LIPID #### [facility] [address] [place] [address] Dr. Kalin Farrell Urea nitrogen/Creatinine [Mass ratio] 15.1 mg/mg Normal [facility] Comment on above: Performed By: #### T SH, FT3, CMP, LIPID #### [facility] [address] [place] [address] Dr. Kalin Farrell TSHon 02-23-2023 TSH 1.804 uIU/mL Normal 0.358-3.740 [facility] Comment on above: Performed By: #### [id number] #### [facility] [address] [place] [address] Dr. Kalin Farrell XR CHEST 2 Von [...] AKI ARZATE Date: 2023-01-18 11:44 Normal [facility] CULTURE THROATon 01-17-2023 CULTURE THROAT Isolate [...] F Tetracycline >=16 R F Normal [facility] Comment on above: Performed By: #### [id number] #### [facility] [address] [place] [address] ABD/PELVIS WO CONon [...] DEEPAK WILLIAMSON Date: 2022-09-27 13:35 Normal [facility] CULTURE URINEon 09-27-2022 CULTURE URINE Culture Observations : NO GROWTH. Normal [facility] Comment on above: Performed By: #### [id number] #### [facility] [address] [place] [address] Dr. Kalin Farrell ER URINE PROFILEon 2 Bilirubin Ql (U) Negative Normal NEGATIVE [facility] Comment on above: Performed By: #### P REGU UMICRO, ERUR #### [facility] [address] [address] [address] Kalin Farrell Clarity (U) CLEAR Normal CLEAR [facility] Comment on above: Performed By: #### P REGUVICKIEICRO, ERUR #### [facility] [address] [place] [address] Dr. Kalin Farrell Color (U) LT. YELLOW Normal YELLOW [facility] Comment on above: Performed By: #### P REGUVICKIEICRO, ERUR #### [facility] [address] [place] [address] Dr. Kalin LEAL A micrscopic examination will be performed if indicated. Normal [facility] Comment on above: Performed By: #### P REGUVICKIEICRO, ERUR #### [facility] [address] [place] [address] Dr. Kalin Farrell Glucose Ql (U) Negative Normal NEGATIVE [facility] Comment on above: Performed By: #### P REGU UMICRO, ERUR #### [facility] [address] [address] [address] Kalin Farrell Hemoglobin Ql (U) LARGE Abnormal NEGATIVE [facility] Comment on above: Performed By: #### P REGU UMICRO, ERUR #### [facility] [address] [place] [address] Dr. Kalin Farrell Ketones Ql (U) Negative Normal NEGATIVE [facility] Comment on above: Performed By: #### P REGU UMICRO, ERUR #### [facility] [address] [place] [address] Dr. Kalin Farrell LEUKOCYTES Negative Normal NEGATIVE [facility] Comment on above: Performed By: #### P REGU, UMICRO, ERUR #### [facility] [address] [address] [address] Kalin Farrell Nitrite Ql (U) Positive Abnormal NEGATIVE [facility] Comment on above: Performed By: #### P REGU, UMICRO, ERUR #### [facility] [address] [address] [address] Kalin Farrell pH (U) 6.0 [pH] Normal 5-9 [facility] Comment on above: Performed By: #### P REGU, UMICRO, ERUR #### [facility] [address] [place] [address] Dr. Kalin Farrell SPEC GRAVITY 1.010 Normal 1.005-<=1.025 [facility] Comment on above: Performed By: #### P REGU, UMICRO, ERUR #### [facility] [address] [address] [address] Kalin Farrell UA PROTEIN Negative Normal NEGATIVE/ TRACE [facility] Comment on above: Performed By: #### P REGU, UMICRO, ERUR #### [facility] [address] [place] [address] Dr. Kalin Farrell UR MICRO IND INDICATED Normal [facility] Comment on above: Performed By: #### P REGU, UMICRO, ERUR #### [facility] [address] [address] [address] Kalin Farrell Urobilinogen Qn (U) 0.2 {Rere'U}/dL Normal 0.2 - 1. 0 [facility] Comment on above: Performed By: #### P REGU, UMICRO, ERUR #### [facility] [address] [place] [address] Dr. Kalin Farrell URon 09-27-2022 , QUAL Negative Normal NEGATIVE [facility] Comment on above: Performed By: #### P REGU, UMICRO, ERUR #### [facility] [address] [place] [address] Dr. Kalin Farrell URINE MICROSCOPIC ONLYon BACTERIA TRACE Abnormal NONE SEEN [facility] Comment on above: Performed By: #### P LE QUEZADA, ERUR #### [facility] [address] [address] [address] Kalin Farrell Bacteria identified Cx Nom (U) INDICATED Normal [facility] Comment on above: Performed By: #### P VICKIE QUEZADAICRO, ERUR #### [facility] [address] [address] [address] Kalin Farrell CAST NONE SEEN Normal NONE SEEN [facility] Comment on above: Performed By: #### P LE QUEZADA, ERUR #### [facility] [address] [place] [address] Dr. Kalin Farrell Crystals LM Nom (Urine sed) NONE SEEN Normal NONE SEEN [facility] Comment on above: Performed By: #### LE PORRAS, ERUR #### [facility] [address] [place] [address] Dr. Kalin Farrell Epithelial cells LM Ql (Urine sed) FEW Abnormal NONE SEEN /RARE [facility] Comment on above: Performed By: #### VICKIE PORRASICRO, ERUR #### [facility] [address] [place] [address] Dr. Kalin Farrell MUCOUS NONE SEEN Normal NONE SEEN [facility] Comment on above: Performed By: #### DANIELLE PORRASRO, ERUR #### [facility] [address] [address] [address] Kalin Farrell RBC 10-20 Abnormal 0-2 [facility] Comment on above: Performed By: #### P VICKIE QUEZADAICRO, ERUR #### [facility] [address] [place] [address] Dr. Kalin Farrell WBC NONE SEEN Normal NONE SEEN [facility] Comment on above: Performed By: #### P VICKIE QUEZADAICRO, ERUR #### [facility] [address] [place] [address] Dr. Kalin Farrell FREE T3on 07-16-2022 FREE T3 2.00 pg/mlL Critically low 2.18-3.98 [facility] Comment on above: Performed By: #### H CGSUB #### [facility] [address] [place] [address] Dr. Kalin Farrell FREE T4on 07-16-2022 Free T4 [Mass/Vol] 1.04 ng/dL Normal 0.76-1.46 [facility] Comment on above: Performed By: #### [id number] #### [facility] [address] [place] [address] Dr. Kalin Farrell TSHon 07-16-2022 TSH 0.488 uIU/mL Normal 0.358-3.[address] [facility] Comment on above: Performed By: #### H CGSUB #### [facility] [address] [place] [address] Dr. Kalin Farrell HCG-BETA SUBUNIT QUANTon hCG,Beta Subunit,Qnt,Serum <1 Normal [facility] Comment on above: Result Comment: Fema le (Non-) 0 - 5 (Postmenopausal) 0 - 8 . Female () Weeks of Gestation 3 6 - 71 4 10 - 750 5 040 - 4807 6 345 - 13729 7 4257 -313125 8 75883 -190680 9 85140 -492974 10 35976 -037071 12 40355 -415942 14 87395 - 37524 15 97288 - 10356 16 9288 - 40060 17 3518 - 75074 18 5900 - 65946 Josselin ECLIA methodology Performed By: #### H CGSUB #### [facility] [address] [place] [address] Dr. Kalin Farrell CBC AUTO DIFFon 06-03-2022 BASO # 0.0 103/ul Normal 0.0-0.1 [facility] Comment on above: Performed By: #### H CGSUB #### [facility] [address] [place] [address] Dr. Kalin Farrell Basophils/100 WBC (Bld) 0.5 % Normal 0.2-2.0 [facility] Comment on above: Performed By: #### H CGSUB #### [facility] [address] [place] [address] Dr. Kalin Farrell EO # 0.1 103/ul Normal 0.0-0.7 [facility] Comment on above: Performed By: #### H CGSUB #### [facility] [address] [place] [address] Dr. Kalin Farrell Eosinophils/100 WBC (Bld) 2.2 % Normal 0.9-7.0 [facility] Comment on above: Performed By: #### H CGSUB #### [facility] [address] [place] [address] Dr. Kalin Farrell Erythrocyte distribution width (RBC) [Ratio] 13.1 % Normal 11.0-15.0 [facility] Comment on above: Performed By: #### H CGSUB #### [facility] [address] [place] [address] Dr. Kalin Farrell Hematocrit (Bld) [Volume fraction] 39.1 % Normal 36.0-48.0 [facility] Comment on above: Performed By: #### H CGSUB #### [facility] [address] [place] [address] Dr. Kalin Farrell Hemoglobin (Bld) [Mass/Vol] 12.5 g/dL Normal 12.0-16.0 [facility] Comment on above: Performed By: #### H CGSUB #### [facility] [address] [place] [address] Dr. Kalin Farrell IG # 0.01 10e3/ul Normal 0.00-0.03 [facility] Comment on above: Performed By: #### H CGSUB #### [facility] [address] [place] [address] Dr. Kalin Farrell IG % 0.2 % Normal 0.0-0.5 [facility] Comment on above: Performed By: #### H CGSUB #### [facility] [address] [place] [address] Dr. Kalin Farrell LYMPH # 2.2 103/ul Normal 1.2-3.8 [facility] Comment on above: Performed By: #### H CGSUB #### [facility] [address] [address] [address] Kalin Farrell Lymphocytes/100 WBC (Bld) 38.6 % Normal 20.5-60.0 [facility] Comment on above: Performed By: #### H CGSUB #### [facility] [address] [place] [address] Dr. Kalin Farrell MANUAL DIFF REQ NO Normal [facility] Comment on above: Performed By: #### H CGSUB #### [facility] [address] [address] [address] Kalin Farrell MCH (RBC) [Entitic mass] 28.7 pg Normal 26.7-34.0 [facility] Comment on above: Performed By: #### H CGSUB #### [facility] [address] [place] [address] Dr. Kalin Farrell MCHC (RBC) [Mass/Vol] 32.0 g/dL Normal 29.9-35.2 [facility] Comment on above: Performed By: #### H CGSUB #### [facility] [address] [place] [address] Dr. Kalin Farrell MCV (RBC) [Entitic vol] 89.7 fL Normal 81.0-99.0 [facility] Comment on above: Performed By: #### H CGSUB #### [facility] [address] [place] [address] Dr. Kalin Farrell MONO # 0.3 103/ul Normal 0.3-0.8 [facility] Comment on above: Performed By: #### H CGSUB #### [facility] [address] [address] [address] Kalin Farrell Monocytes/100 WBC (Bld) 5.6 % Normal 1.7-12.0 [facility] Comment on above: Performed By: #### H CGSUB #### [facility] [address] [place] [address] Dr. Kalin Farrell NEUT # 3.0 103/ul Normal 1.4-6.5 [facility] Comment on above: Performed By: #### H CGSUB #### [facility] [address] [address] [address] Kalin Farrell Neutrophils/100 WBC (Bld) 52.9 % Normal 43.0-75.0 [facility] Comment on above: Performed By: #### H CGSUB #### [facility] [address] [place] [address] Dr. Kalin Farrell Platelet mean volume (Bld) [Entitic vol] 9.3 fL Critically low 9.5-13.5 [facility] Comment on above: Performed By: #### H CGSUB #### [facility] [address] [place] [address] Dr. Kalin Farrell PLT 302 103/ul Normal 150-450 [facility] Comment on above: Performed By: #### H CGSUB #### [facility] [address] [place] [address] Dr. Kalin Farrell RBC 4.36 106/ul Normal 4.20-5.40 [facility] Comment on above: Performed By: #### H CGSUB #### [facility] [address] [place] [address] Dr. Kalin Farrell WBC 5.6 103/ul Normal 4.0-11.0 [facility] Comment on above: Performed By: #### H CGSUB #### [facility] [address] [place] [address] Dr. Kalin Farrell Covid-19 PCR (CVDTB)on 05-18 SARS-CoV-2 (COVID-19) RNA KARINA+probe Ql (Unsp spec) Not detected Normal NOT DETECTED [facility] Comment on above: Result Comment: This test is not yet approved or cleared by the [place] FDA. When there are no FDA-approved or cleared tests available, and other criteria are met, FDA can make tests available under an emergency access mechanism called an Emergency Use Authorization (EUA). The EUA for this test is supported by the [employer] of Health and Human Service's (HHS's) declaration [...] consistent with SARS-CoV-2. Performed By: #### [id number] #### [facility] [address] [place] [address] Dr. Kalin Farrell PAP ACOG PANEL 2: 30 to 65on 05-11-2022 . . Normal [facility] Comment on above: Result Comment: Perf ormed at: WB Performed By: #### [id number] #### [facility] [address] [place] [address] Dr. Kalin Farrell Age Gdln ACOG Testing - Normal [facility] Comment on above: Performed By: #### [id number] #### [facility] [address] [place] [address] Dr. Kalin Farrell DIAGNOSIS: Comment Normal [facility] Comment on above: Result Comment: NEGA TIVE FOR INTRAEPITHELIAL LESION OR MALIGNANCY. Performed at: [facility] Performed By: #### [id number] #### [facility] [address] [place] [address] Dr. Kalin Farrell HPV Aptima Negative Normal Negative [facility] Comment on above: Result Comment: This nucleic acid amplification test detects fourteen high-risk HPV types (16,18,31,33,35,39,45,51,52,56,58,59,66,68) without differentiation. Performed at: =G Performed By: #### [id number] #### [facility] [address] [place] [address] Dr. Kalin Farrell Methodology: Comment Normal [facility] Comment on above: Result Comment: This liquid based ThinPrep(R) pap test was screened with the use of an image guided system. Performed at: WB Performed By: #### [id number] #### [facility] [address] [address] [address] Kalin Farrell Note: Comment [facility] Comment on above: Result Comment: The Pap smear is a screening test designed to aid in the detection of premalignant and malignant conditions of the uterine cervix. It is not a diagnostic procedure and should not be used as the sole means of detecting cervical cancer. Both false-positive and false-negative reports do occur. . Performed at: WB Performed By: #### [id number] #### [facility] [address] [address] [address] Kalin Farrell Performed by: Comment Normal [facility] Comment on above: Result Comment: Katiuska Kumar, Network Contract Manager Performed at: WB Performed By: #### [id number] #### [facility] [address] [place] [address] Dr. Kalin Farrell Specimen adequacy: Comment Normal [facility] Comment on above: Result Comment: Sati sfactory for evaluation. Endocervical and/or squamous metaplastic cells (endocervical component) are present. Performed at: WB Performed By: #### [id number] #### [facility] [address] [address] [address] Kalin Farrell Vital Signs Date Time Vital Sign Value Performing Clinician Facility 09-28-2023 14:00-0500 Body height 163.83 cm Elfego Guardado Other [facility] Other 09-28-2023 14:00-0500 Body mass index (BMI) [Ratio] 35.54 kg/m2 Elfego Guardado Other [facility] Other 09-28-2023 14:00-0500 Body weight 95.39 kg Elfego Guardado Other [facility] Other 09-28-2023 14:00-0500 Diastolic blood pressure 63 mm[Hg] Elfego Guardado Other [facility] Other 09-28-2023 14:00-0500 Systolic blood pressure 101 mm[Hg] Elfego Debby Other [facility] Other 07-10-2022 13:50-0400 Body height 163.83 cm Rosa Olivo Other [facility] Other 07-10-2022 13:50-0400 Body mass index (BMI) [Ratio] 34.98 kg/m2 Rosa Olivo Other [facility] Other 07-10-2022 13:50-0400 Body temperature 98.1 [degF] Rosa Olivo Other [facility] Other 07-10-2022 13:50-0400 Body weight 93.9 kg Rosa Olivo Other [facility] Other 07-10-2022 13:50-0400 Diastolic blood pressure 64 mm[Hg] Rosa Olivo Other [facility] Other 07-10-2022 13:50-0400 Respiratory rate 18 /min Rosa Olivo Other [facility] Other 07-10-2022 13:50-0400 SaO2% (BldA) [Mass fraction] 98 % Rosa Olivo Other [facility] Other 07-10-2022 13:50-0400 Systolic blood pressure 107 mm[Hg] Rosa Olivo Other [facility] Other 04-16-2022 16:15-0400 Body height 163.83 cm Elfego Debby Other [facility] Other 04-16-2022 16:15-0400 Body mass index (BMI) [Ratio] 34.98 kg/m2 Elfego Guardado Other [facility] Other 04-16-2022 16:15-0400 Body weight 93.9 kg Elfego Guardado Other [facility] Other 09-05-2021 12:20-0500 Body height 163.83 cm Annemarie Josi Other [facility] Other 09-05-2021 12:20-0500 Body mass index (BMI) [Ratio] 35.55 kg/m2 Annemarie Josi Other [facility] Other 09-05-2021 12:20-0500 Body temperature 98.9 [degF] Annemarie Josi Other [facility] Other 09-05-2021 12:20-0500 Body weight 95.44 kg Annemarie Josi Other [facility] Other 09-05-2021 12:20-0500 Diastolic blood pressure 66 mm[Hg] Annemarie Josi Other [facility] Other 09-05-2021 12:20-0500 Respiratory rate 18 /min Annemarie Josi Other [facility] Other 09-05-2021 12:20-0500 SaO2% (BldA) [Mass fraction] 100 % Annemarie Josi Other [facility] Other 09-05-2021 12:20-0500 Systolic blood pressure 108 mm[Hg] Annemarie Josi Other [facility] Other Encounters Encounter Date Encounter Type Care Provider Facility Start: 12-22-2023 End: 12-23-2023 ambulatory Regino SIMMONS Facility:[facility] Start: 12-22-2023 End: 12-23-2023 ambulatory Regino SIMMONS Facility:[facility] Start: 12-20-2023 End: 12-20-2023 ambulatory DAVID AICHHOLZ Not Available Start: 09-28-2023 End: 09-28-2023 ambulatory Elfego Guardado Other [facility] Other Start: 09-28-2023 Office outpatient vi sit 15 minutes Elfego Guardado [facility] Start: 08-31-2023 End: 08-31-2023 ambulatory MAUDE FLYNN Not Available Start: 08-16-2023 End: 08-17-2023 ambulatory Marilu Bello Facility:[facility] Leatha quispe Start: 07-09-2023 End: 07-10-2023 ambulatory Amy FREEMAN Facility:[facility] Start: 03-03-2023 End: 03-03-2023 ambulatory [employer]IST DAVID AICHHOLZ Facility:[facility] Start: 02-23-2023 End: 02-24-2023 ambulatory [employer] SPECIALIST DAVID AICHHOLZ Facility:[facility] Start: 01-18-2023 End: 01-19-2023 ambulatory [employer] SPECIALIST DAVID AICHHOLZ Facility:[facility] Start: 01-14-2023 End: 01-14-2023 ambulatory [employer] INSTRUCTION SPECIALIST DAVID AICHHOLZ Facility:[facility] Start: 09-27-2022 End: 09-27-2022 ambulatory [employer] INSTRUCTION SPECIALIST DAVID AICHHOLZ Facility:[facility] Start: 08-20-2022 End: 08-20-2022 ambulatory Elfego Guardado Other [facility] Other Start: 08-20-2022 Telephone encounter Elfego Sullivan ck [facility] Start: 07-16-2022 End: 07-17-2022 ambulatory [employer]CTION [employer]IST DAVID AICHHOLZ Facility:[facility] Start: 07-10-2022 End: 07-10-2022 ambulatory Rosa Olivo Other [facility] Other Start: 07-10-2022 Office outpatient vi sit 25 minutes Rosa Sidhuler [facility] Start: 06-05-2022 End: 06-05-2022 ambulatory PRASHANTH SO Facility:[facility] Start: 06-04-2022 Encounter for preprocedural laboratory examination DR MANDY NOE . [facility] Start: 06-03-2022 End: 06-04-2022 ambulatory PRASHANTH SO Facility:[facility] Start: 06-03-2022 End: 06-04-2022 Encounter for preprocedural laboratory examination PRASHANTH DAVID SO Facility:[facility] Start: 05-28-2022 Encounter for other preprocedural examination DR MANDY NOE . [facility] Start: 05-27-2022 End: 05-28-[address] MANDY NOE . Facility:[facility] Start: 05-27-2022 End: 05-28-2022 Encounter for other preprocedural examination DR MANDY NOE . Facility:[facility] Start: 05-06-2022 End: 05-06-[address] MANDY NOE . Facility:[facility] Start: 04-16-2022 End: 04-16-2022 ambulatory Elfego Guardado Other [facility] Other Start: 04-16-2022 Patient encounter procedure Elfego Guardado [facility] Start: 09-25-2021 End: 09-25-2021 ambulatory Elfego Guardado Other [facility] Other Start: 09-25-2021 Telephone encounter Elfego rivera [facility] Start: 09-05-2021 End: 09-05-2021 ambulatory Annemarie Prater Other [facility] Other Start: 09-05-2021 Office outpatient vi sit 15 minutes Annemarie Prater [facility] Payers Date Payer Category Payer Unknown [id number] 2018 Medicaid [id number] 1985 Unknown [id number] 2.16.84 [id number] 1986 Unknown [id number] 2.16.84 [id number] 1986 Unknown [id number] 2.16.84 0.1.789167.3.579.2.593 1986 Unknown [id number] 2.16.84 0.1.820548.3.579.2.593 1986 Unknown [id number] 2.16.84 0.1.503121.3.579.2.593 1986 Unknown [id number] 2.16.84 0.1.089092.3.579.2.593 1986 Unknown [id number] 2.16.84 0.1.883423.3.579.2.593 1986 Unknown [id number] 2.16.84 0.1.809686.3.579.2.593 1986 Unknown [id number] 2.16.84 0.1.953989.3.579.2.593 1986 Unknown [id number] 2.16.84 0.1.420663.3.579.2.593 1986 Unknown [id number] 2.16.84 0.1.639046.3.579.2.1259 1986 Unknown [id number] 2.16.840. 1.708492.3.579.2.1259 1986 Unknown [id number] 2.16.8 40.1.990158.3.579.2.727 1986 Unknown [id number] 2.16.8 40.1.694363.3.579.2.727 1986 Unknown [id number] 2.16.8 40.1.557702.3.579.2.727 1959 Unknown [id number] 2.1 [id number] 1959 Unknown [id number] Social History Date Type Detail Facility Unknown if ever smoked [facility] Other Sex Assigned At Sex Assigned At Bir th [facility] Other Evaluation note 09-28-2023 Note Date & Type Note Facility 09-28-2023 Evaluation note Encounter Date Diagnosis Assessment Notes Sep, Abdominal pain (ICD-10 - R10.9) Pt states the diarrhea is better. Pt to proceed with colonoscopy. Sep, Heartburn (ICD-10 - R12) Pt to take Gaviscon [facility] Other Evaluation note 08-20-2022 Note Date & Type Note Facility 08-20-2022 Evaluation note Encounter Date Diagnosis Assessment Notes Aug, GERD (gastroesop hageal reflux disease) (ICD-10 - K21.9) [facility] Other Evaluation note 07-10-2022 Note Date & [...] understanding and is agreeable to treatment plan [facility] Other Clinical Note 06-05-2022 Note Date & Type Note Facility 06-05-2022 Note OPERATIVE NOTE OPERATION DATE: 06/05/2022 PROCEDURE: Bilateral laparoscopic salpingectomy. PREOPERATIVE DIAGNOSIS: Desires permanent sterilization, pelvic pain. POSTOPERATIVE DIAGNOSIS: Desires permanent sterilization, pelvic pain. ANESTHESIA: General. SURGEON: Mandy Noe D.O. TSO: KATHARINA Sims URINE OUTPUT: Yellow and clear. [...] and needle counts were correct x2. [facility] Evaluation note 04-16-2022 Note Date & Type Note Facility 04-16-2022 Evaluation note Encounter Date Diagnosis Assessment Notes Mar, GERD (gastroesopha geal reflux disease) (ICD-10 - K21.9) RTO 1 YR Mar, Abdominal pain (ICD-10 - R10.9) [facility] Other Evaluation note 09-25-2021 Note Date & Type Note Facility 09-25-2021 Evaluation note Encounter Date Diagnosis Assessment Notes Sep, Abdominal pain (ICD-10 - R10.9) [facility] Other Evaluation note 09-05-2021 Note Date & Type Note Facility 09-05-2021 Evaluation note Encounter Date Diagnosis Assessment Notes Aug, Otitis externa of right ear, unspecified chronicity, unspecified type (ICD-10 - H60.91) Aug, Acute sinusitis, recurrence not specified, unspecified location (ICD-10 - J01.90) Aug, Other Otitis externa material was printed [facility] Other History general Narrative - Reported Note Date & Type Note Facility History general Narrative - Reported Type Medical History graves disease Medical History Esophageal reflux Medical History migraines Hospitalization History child [facility] Other History general Narrative - Reported Note Date & Type Note Facility History general Narrative - Reported Type Medical History graves disease Medical History Esophageal reflux Medical History migraines Surgical History tubal ligation Surgical History laparoscopy Hospitalization History child [facility] Other Summary Purpose Family History No Family History Records FoundNo Family History Records FoundNo Family History Records Found Advance Directives No Advanced Directives Records FoundNo Advanced Directives Records FoundNo Advanced Directives Records Found Additional Source Comments REASON FOR VISIT (unrecogniz ed section and content) B/L EAR PAIN X 1WEEK , DIZZI NESSNo InformationFORMER JAVED PATIENT WITH GERD. WANTS TO DISCUSS INCREASING PANTOPRAZOLERIGHT SHOULDER PAINMEDICATIONPatient complaining of abdominal pain INFORMATION SOURCE (unrecogn ized section and content) DATE CREATED AUTHOR 03/04/2023 [facility] DATE CREATED AUTHOR AUTHOR'S ORGANIZ ATION 12/21/2023 [facility] EPIC DATE CREATED AUTHOR AUTHOR'S ORGANIZ ATION 12/23/2023 [facility] FOR RECORDS PERTAINING TO PATIENTS WHO ARE [...] BE BASED ON THE PRIMARY CLINICAL RECORDS. [employer] [facility]. provides no warranty or guarantee of the accuracy or completeness of information in this document.
== END 2023-12-29 06:36 | disposition home or self-care (01) ==
LOC: MRI 06:35
PROVIDERS: PCP Nurse Practitioner; Visit Provider Orthopaedic Surgery
DX: D17.22 Benign lipomatous neoplasm of skin and subcutaneous tissue of left arm (principal); M25.512 Pain in left shoulder; G89.29 Other chronic pain
CPT/HCPCS: 73223; A9575

== ENCOUNTER 2024-08-23 19:11 | Emergency (ER) | payer SELFPAY ==
[2024-08-23 19:16] VITALS: BP 102/78; PULSE 73; TEMP 36.6; O2SAT 98; BMI 34.8
--- OUTSIDE RECORDS SUMMARY | 2024-08-23 19:17 | XMS_ITS | CCD ---
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 Role Phone Annemarie Prater Unavailable Debby, Elfego Unavailable [phone] Rosa Olivo Unavailable AICHHOLZ, AUTISM SPECIALIST DAVID Attending Unavailable AICHHOLZ, AUTISM SPECIALIST DAVID Admitting Unavailable AICHHOLZ, AUTISM SPECIALIST DAVID Primary Care Unavailable AICHHOLZ, AUTISM SPECIALIST DAVID Consulting Unavailable AICHHOLZ, AUTISM SPECIALIST DAVID Primary Care Unavailable BERYL, DR BELKIS Perkins Consulting Unavaileugene CORDOBA, DR BELKIS Perkins Attending Unavaileugene CORDOBA, DR BELKIS Perkins Admitting Unavailabl e DEEPAK WILLIAMSON Consulting Unavailable AICHHOLZ, AUTISM SPECIALIST DAVID Primary Care Unavailable JAGJIT ., DR GALVAN Admitting Unavailable JAGJIT ., DR GALVAN Consulting Unavailable JAGJIT ., DR GALVAN Attending Unavailable JAGJIT ., DR GALVAN Admitting Unavailable JAGJIT ., DR GALVAN Attending Unavailable AICHHOLZ, AUTISM SPECIALIST DAVID Primary Care Unavailable AICHHOLZ, AUTISM SPECIALIST DAVID Primary Care Unavailable JAGJIT ., DR GALVAN Admitting Unavailable JAGJIT ., DR GALVAN Consulting Unavailable JAGJIT ., DR GALVAN Attending Unavailable AGUBOSIM, ANABELLA Consulting Unavailable LANGDAVID, HEAVENLY Consulting Unavailable JUNGERMANN, ANTONINO Consulting Unavailable AICHHOLZ, AUTISM SPECIALIST DAVID Attending Unavailable AICHHOLZ, AUTISM SPECIALIST DAVID Admitting Unavailable AICHHOLZ, AUTISM SPECIALIST DAVID Primary Care Unavailable AICHHOLZ, AUTISM SPECIALIST DAVID Consulting Unavailable AICHHOLZ, AUTISM SPECIALIST DAVID Attending Unavailable AICHHOLZ, AUTISM SPECIALIST DAVID Admitting Unavailable AICHHOLZ, AUTISM SPECIALIST DAVID Primary Care Unavailable AICHHOLZ, AUTISM SPECIALIST DAVID Consulting Unavailable AKI ARZATE Consulting Unavailable AICHHOLZ, AUTISM SPECIALIST DAVID Consulting Unavailable AICHHOLZ, AUTISM SPECIALIST DAVID Attending Unavailable AICHHOLZ, AUTISM SPECIALIST DAVID Admitting Unavailable AICHHOLZ, AUTISM SPECIALIST DAVID Primary Care Unavailable AICHOLJosephine, AUTISM SPECIALIST DAVID Consulting Unavailable AICKaylaHOLZ, AUTISM SPECIALIST DAVID Attending Unavailable AICKaylaHOLZ, AUTISM SPECIALIST DAVID Admitting Unavailable AICKaylaHOLZ, AUTISM SPECIALIST DAVID Primary Care Unavailable JAGJIT ., DR GALVAN Admitting Unavailable JAGJTI ., DR GALVAN Consulting Unavailable JAGJIT ., DR GALVAN Attending Unavailable OLVINARIANA, AUTISM SPECIALIST DAVID Primary Care Unavailable MAUDE FLYNN Attending Unavailable DAVID SO Attending Unavailable Regino SIMMONS Attending Unavailable Aym FREEMAN Attending Unavailable Marilu Bello Attending Unavailable Regino SIMMONS Attending Unavailable Allergies Allergy Classification Reported Allergen(s) Allergy Type Date of Onset Reaction(s) Facility (6 sources) Penicillin G Drug Allergy rash/itching [facility] Other (1 source) Penicillins Drug allergy (disorder) [address] 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 Consent [id number]#1. 00TIFF Normal [facility] Registrationon 12-22-2023 Registration [id number]#[address] [facility] Consent for Flu Vaccineon Consent for Flu Vaccine [id number]#1.[address] [facility] Quantiferon-TB Plus (Client Incubated)on 07-13-2023 Gamma interferon background IA Qn (Bld) 0.00 International_Unit/mL Invalid Interpretation Code [facility] Comment on above: Performed By: #### 3 [id number], [id number], [id number], [id number] #### [facility] [address] [place] [address] M. tuberculosis stim IFN-g by CD4+ CD8+ T-cells Qn (Bld) 0.05 International_Unit/mL Invalid Interpretation Code [facility] Comment on above: Performed By: #### 3 [id number], [id number], [id number], [id number] #### [facility] [address] [place] [address] M. tuberculosis stim IFN-g by CD4+ T-cells Qn (Bld) 0.02 International_Unit/mL Invalid Interpretation Code [facility] Comment on above: Performed By: #### 3 [id number], [id number], [id number], [id number] #### [facility] [address] [place] [address] M. tuberculosis stim IFN-g Ql (Bld) [Interp] Negative Invalid Interpretation Code Negative [facility] Comment on above: Result Comment: No r [...] interferon gamma. Chemiluminescence immunoassay methodology Performed at: [facility] [address], [place] [id number] PhD Onofre Dutta Performed By: #### 3 [id number], [id number], [id number], [id number] #### [facility] [address] [place] [address] Mitogen stimulated gamma interferon Qn (Bld) >10.[address] [facility] Comment on above: Performed By: #### 3 [id number], [id number], [id number], [id number] #### [facility] [address] [place] [address] Service comment (Unsp spec) [Interp] Comment Invalid Interpretation Code [facility] Comment on above: Result Comment: Ed tiFERON-TB [...] for the test. Performed By: #### 3 [id number], [id number], [id number], [id number] #### [facility] [address] [place] [address] Hep Bs Abon 07-10-2023 HBV surface Ab Ql (S) Reactive Invalid Interpretation Code [facility] Comment on above: Result Comment: Non Reactive: Inconsistent with immunity, less than 10 mIU/mL Reactive: Consistent with immunity, greater than 9.9 mIU/mL Performed at: [facility] [address], [place] [id number] PhD Onofre Dutta Performed By: #### 3 [id number], [id number], [id number], [id number] #### [facility] [address] [place] [address] Measles/Mumps/Rubella Immuni tyon 07-10-2023 MeV IgG IA Qn (S) 74.1 A unit/mL Invalid Interpretation Code Immune >16.4 [facility] Comment on above: Result Comment: Nega tive <13.5 Equivocal 13.5 - 16.4 Positive >16.4 Presence of antibodies to Rubeola is presumptive evidence of immunity except when acute infection is suspected. Performed By: #### 3 [id number], [id number], [id number], [id number] #### [facility] [address] [place] [address] MuV IgG IA Qn (S) 113.0 A unit/mL Invalid Interpretation Code Immune >10.9 [facility] Comment on above: Result Comment: Nega tive <9.0 Equivocal 9.0 - 10.9 Positive >10.9 A positive result generally indicates past exposure to Mumps virus or previous vaccination. Performed at: [employer] [id number] PhD Onofre Dutta Performed By: #### 3 [id number], [id number], [id number], [id number] #### [facility] [address] [place] [address] Rubella virus IgG Qn (S) 3.34 [IU]/mL Invalid Interpretation Code Immune >0.99 [facility] Comment on above: Result Comment: Non- immune <0.90 Equivocal 0.90 - 0.99 Immune >0.99 Performed By: #### 3 [id number], [id number], [id number], [id number] #### [facility] [address] [place] [address] Varic IgGon 07-10-2023 VZV IgG IA Qn (S) 1305 Invalid Interpretation Code Immune >165 [facility] Comment on above: Result Comment: Nega tive <135 Equivocal 135 - 165 Positive >165 A positive result generally indicates exposure to the pathogen or administration of specific immunoglobulins, but it is not indication of active infection or stage of disease. Performed at: [employer] [facility] [address], [place] [id number] PhD Onofre Dutta Performed By: #### 3 [id number], [id number], [id number], [id number] #### [facility] [address] [place] [address] UA RANDOM W/MICROSCOPICon BACTERIA NONE SEEN Normal NONE SEEN [facility] Comment on above: Performed By: #### U AMIC #### [facility] [address] [place] [address] Dr. Kalin Farrell Bilirubin Ql (U) Negative Normal NEGATIVE [facility] Comment on above: Performed By: #### U AMIC #### [facility] [address] [place] [address] Dr. Kalin Farrell CAST NONE SEEN Normal NONE SEEN [facility] Comment on above: Performed By: #### U AMIC #### [facility] [address] [place] [address] Dr. Kalin Farrell Clarity (U) CLEAR Normal CLEAR [facility] Comment on above: Performed By: #### U AMIC #### [facility] [address] [place] [address] Dr. Kalin Farrell Color (U) LT. YELLOW Normal YELLOW [facility] Comment on above: Performed By: #### U AMIC #### [facility] [address] [place] [address] Dr. Kalin Farrell Crystals LM Nom (Urine sed) NONE SEEN Normal NONE SEEN [facility] Comment on above: Performed By: #### U AMIC #### [facility] [address] [place] [address] Dr. Kalin Farrell Epithelial cells LM Ql (Urine sed) RARE Normal NONE SEEN /RARE [facility] Comment on above: Performed By: #### U AMIC #### [facility] [address] [place] [address] Dr. Kalin Farrell Glucose Ql (U) Negative Normal NEGATIVE The [facility] Comment on above: Performed By: #### U AMIC #### [facility] [address] [place] [address] Dr. Kalin Farrell Hemoglobin Ql (U) Negative Normal NEGATIVE The [facility] Comment on above: Performed By: #### U AMIC #### [facility] [address] [address] [address] Kalin Farrell Ketones Ql (U) Negative Normal NEGATIVE [facility] Comment on above: Performed By: #### U AMIC #### [facility] [address] [address] [address] Kalin Farrell LEUKOCYTES Negative Normal NEGATIVE [facility] Comment on above: Performed By: #### U AMIC #### [facility] [address] [address] [address] Kalin Farrell MUCOUS NONE SEEN Normal NONE SEEN [facility] Comment on above: Performed By: #### U AMIC #### [facility] [address] [place] [address] Dr. Kalin Farrell Nitrite Ql (U) Negative Normal NEGATIVE The [facility] Comment on above: Performed By: #### U AMIC #### [facility] [address] [place] [address] Dr. Kalin Farrell pH (U) 7.0 [pH] Normal 5-[address] [facility] Comment on above: Performed By: #### U AMIC #### [facility] [address] [place] [address] Dr. Kalin Farrell RBC NONE SEEN Abnormal 0-2 [facility] Comment on above: Performed By: #### U AMIC #### [facility] [address] [address] [address] Kalin Farrell SPEC GRAVITY 1.005 Normal 1.005-<=1.025 [facility] Comment on above: Performed By: #### U AMIC #### [facility] [address] [place] [address] Dr. Kalin Farrell UA PROTEIN Negative Normal NEGATIVE/ TRACE [facility] Comment on above: Performed By: #### U AMIC #### [facility] [address] [place] [address] Dr. Kalin Farrell Urobilinogen Qn (U) 0.2 {Rere'U}/dL Normal 0.2 - 1. 0 [facility] Comment on above: Performed By: #### U AMIC #### [facility] [address] [place] [address] Dr. Kalin Farrell WBC NONE SEEN Normal NONE SEEN [facility] Comment on above: Performed By: #### U AMIC #### [facility] [address] [place] [address] Dr. Kalin Farrell CBC AUTO DIFFon 02-23-2023 BASO # 0.0 103/ul Normal 0.0-0.1 [facility] Comment on above: Performed By: #### C BC #### [facility] [address] [place] [address] Dr. Kalin Farrell Basophils/100 WBC (Bld) 0.6 % Normal 0.2-2.0 [facility] Comment on above: Performed By: #### C BC #### [facility] [address] [place] [address] Dr. Kalin Farrell EO # 0.2 103/ul Normal 0.0-0.7 [facility] Comment on above: Performed By: #### C BC #### [facility] [address] [place] [address] Dr. Kalin Farrell Eosinophils/100 WBC (Bld) 2.8 % Normal 0.9-7.0 [facility] Comment on above: Performed By: #### C BC #### [facility] [address] [place] [address] Dr. Kalin Farrell Erythrocyte distribution width (RBC) [Ratio] 13.5 % Normal 11.0-15.0 [facility] Comment on above: Performed By: #### C BC #### [facility] [address] [place] [address] Dr. Kalin Farrell Hematocrit (Bld) [Volume fraction] 38.8 % Normal 36.0-48.0 [facility] Comment on above: Performed By: #### C BC #### [facility] [address] [place] [address] Dr. Kalin Farrell Hemoglobin (Bld) [Mass/Vol] 12.3 g/dL Normal 12.0-16.0 [facility] Comment on above: Performed By: #### C BC #### [facility] [address] [place] [address] Dr. Kalin Farrell IG # 0.02 10e3/ul Normal 0.00-0.03 [facility] Comment on above: Performed By: #### C BC #### [facility] [address] [place] [address] Dr. Kalin Farrell IG % 0.3 % Normal 0.0-0.5 [facility] Comment on above: Performed By: #### C BC #### [facility] [address] [place] [address] Dr. Kalin Farrell LYMPH # 2.5 103/ul Normal 1.2-3.8 [facility] Comment on above: Performed By: #### C BC #### [facility] [address] [place] [address] Dr. Kalin Farrell Lymphocytes/100 WBC (Bld) 39.0 % Normal 20.5-60.0 [facility] Comment on above: Performed By: #### C BC #### [facility] [address] [place] [address] Dr. Kalin Farrell MANUAL DIFF REQ NO Normal [facility] Comment on above: Performed By: #### C BC #### [facility] [address] [place] [address] Dr. Kalin Farrell MCH (RBC) [Entitic mass] 27.5 pg Normal 26.7-34.0 [facility] Comment on above: Performed By: #### C BC #### [facility] [address] [place] [address] Dr. Kalin Farrell MCHC (RBC) [Mass/Vol] 31.7 g/dL Normal 29.9-35.[address] [facility] Comment on above: Performed By: #### C BC #### [facility] [address] [place] [address] Dr. Kalin Farrell MCV (RBC) [Entitic vol] 86.8 fL Normal 81.0-99.[address] [facility] Comment on above: Performed By: #### C BC #### [facility] [address] [address] [address] Kalin Farrell MONO # 0.4 103/ul Normal 0.3-0.[address] [facility] Comment on above: Performed By: #### C BC #### [facility] [address] [address] [address] Kalin Farrell Monocytes/100 WBC (Bld) 6.8 % Normal 1.7-12.0 [facility] Comment on above: Performed By: #### C BC #### [facility] [address] [address] [address] Kalin Farrell NEUT # 3.3 103/ul Normal 1.4-6.[address] [facility] Comment on above: Performed By: #### C BC #### [facility] [address] [place] [address] Dr. Kalin Farrell Neutrophils/100 WBC (Bld) 50.5 % Normal 43.0-75.0 [facility] Comment on above: Performed By: #### C BC #### [facility] [address] [place] [address] Dr. Kalin Farrell Platelet mean volume (Bld) [Entitic vol] 8.7 fL Critically low 9.5-13.5 [facility] Comment on above: Performed By: #### C BC #### [facility] [address] [place] [address] Dr. Kalin Farrell PLT 335 103/ul Normal 150-[address] [facility] Comment on above: Performed By: #### C BC #### [facility] [address] [place] [address] Dr. Kalin Farrell RBC 4.47 106/ul Normal 4.20-5.[address] [facility] Comment on above: Performed By: #### C BC #### [facility] [address] [place] [address] Dr. Kalin Farrell WBC 6.5 103/ul Normal 4.0-11.[address] [facility] Comment on above: Performed By: #### C BC #### [facility] [address] [address] [address] Kalin Farrell FREE T3on 02-23-2023 FREE T3 2.66 pg/mlL Normal 2.18-3.98 [facility] Comment on above: Performed By: #### 4 [id number] #### [facility] [address] [place] [address] Dr. Kalin Farrell FREE T4on 02-23-2023 Free T4 [Mass/Vol] 0.98 ng/dL Normal 0.76-1.46 [facility] Comment on above: Performed By: #### F T4 #### [facility] [address] [place] [address] Dr. Kalin Farrell GLYCOHEMOGLOBIN A1Con 2022 ADA RECOMMENDATION SEE BELOW Normal [facility] Comment on above: Result Comment: ADA RECOMMENDED LIMIT 4.0 - 6.0 ADA THERAPEUTIC TARGET < 7.0 ACTION SUGGESTED > 7.0 Performed By: #### A 1C #### [facility] [address] [place] [address] Dr. Kalin Farrell Glucose [Mass/Vol] 94 mg/dL Normal [facility] Comment on above: Performed By: #### A 1C #### [facility] [address] [place] [address] Dr. Kalin Farrell HbA1c (Bld) [Mass fraction] 4.9 % Normal 4.5-6.2 [facility] Comment on above: Performed By: #### A 1C #### [facility] [address] [place] [address] Dr. Kalin Farrell LIPID PROFILEon 02-23-2023 CHOL-HDL RATIO NORM SEE BELOW Normal [facility] Comment on above: Result Comment: 3.3 - 4.4 LOW RISK 4.4 - 7.1 AVERAGE RISK 7.1 - 11.0 MODERATE RISK >11.0 HIGH RISK Performed By: #### 4 [id number] #### [facility] [address] [place] [address] Dr. Kalin Farrell Cholesterol [Mass/Vol] 209 mg/dL Critically high <=200 [facility] Comment on above: Performed By: #### 4 [id number] #### [facility] [address] [address] [address] Kalin Farrell Cholesterol in HDL [Mass/Vol] 71 mg/dL Critically high 40-60 [facility] Comment on above: Performed By: #### 4 [id number] #### [facility] [address] [address] [address] Kalin Farrell Cholesterol in LDL [Mass/Vol] 126.8 mg/dL Normal [facility] Comment on above: Performed By: #### 4 [id number] #### [facility] [address] [address] [address] Kalin Farrell Cholesterol.total/Ch olesterol in HDL [Mass ratio] 2.9 {ratio} Normal [facility] Comment on above: Performed By: #### 4 [id number] #### [facility] [address] [place] [address] Dr. Kalin Farrell HDL NORMAL > or = 60 mg/dl - LO W CARDIOVASCULAR RISK <40 mg/dl - HIGH CARDIOVASCULAR RISK Normal [facility] Comment on above: Performed By: #### 4 [id number] #### [facility] [address] [place] [address] Dr. Klain Farrell LDL CALC NORMAL SEE BELOW Normal [facility] Comment on above: Result Comment: <100 mg/dl OPTIMAL 100 - 129 mg/dl NEAR OR ABOVE OPTIMAL 130 - 159 mg/dl BORDERLINE HIGH 160 - 189 mg/dl HIGH >190 mg/dl VERY HIGH Performed By: #### 4 [id number] #### [facility] [address] [place] [address] Dr. Kalin Farrell Triglyceride [Mass/Vol] 56 mg/dL Normal <=150 [facility] Comment on above: Performed By: #### 4 [id number] #### [facility] [address] [place] [address] Dr. Kalin Farrell VLDL CALC 11.2 mg/dL Normal [facility] Comment on above: Performed By: #### 4 [id number] #### [facility] [address] [place] [address] Dr. Kalin Farrell PROF 14(COMP METB)on 023 Albumin [Mass/Vol] 3.5 g/dL Normal 3.4-5.0 [facility] Comment on above: Performed By: #### T SH, FT3, CMP, LIPID #### [facility] [address] [place] [address] Dr. Kalin Farrell Albumin/Globulin [Mass ratio] 0.9 {ratio} Normal [facility] Comment on above: Performed By: #### T SH, FT3, CMP, LIPID #### [facility] [address] [place] [address] Dr. Kalin Farrell ALP [Catalytic activity/Vol] 65 U/L Normal 46-116 [facility] Comment on above: Performed By: #### T SH, FT3, CMP, LIPID #### [facility] [address] [place] [address] Dr. Kalin Farrell ALT [Catalytic activity/Vol] 27 U/L Normal 14-59 [facility] Comment on above: Performed By: #### T SH, FT3, CMP, LIPID #### [facility] [address] [place] [address] Dr. Kalin Farrell Anion gap [Moles/Vol] 10.3 mmol/L Normal [facility] Comment on above: Performed By: #### T SH, FT3, CMP, LIPID #### [facility] [address] [place] [address] Dr. Kalin Farrell AST [Catalytic activity/Vol] 16 U/L Normal 15-37 [facility] Comment on above: Performed By: #### T SH, FT3, CMP, LIPID #### [facility] [address] [place] [address] Dr. Kalin Farrell Bilirubin [Mass/Vol] 0.5 mg/dL Normal 0.2-1.0 [facility] Comment on above: Performed By: #### T SH, FT3, CMP, LIPID #### [facility] [address] [place] [address] Dr. Kalin Farrell Calcium [Mass/Vol] 8.7 mg/dL Normal 8.5-10.1 [facility] Comment on above: Performed By: #### T SH, FT3, CMP, LIPID #### [facility] [address] [address] [address] Kalin Farrell Chloride [Moles/Vol] 107 mmol/L Normal 98-[address] [facility] Comment on above: Performed By: #### T SH, FT3, CMP, LIPID #### [facility] [address] [address] [address] Kalin Farrell CO2 [Moles/Vol] 27.5 mmol/L Normal 21.0-32.0 [facility] Comment on above: Performed By: #### T SH, FT3, CMP, LIPID #### [facility] [address] [place] [address] Dr. Kalin Farrell Creatinine [Mass/Vol] 0.86 mg/dL Normal 0.55-1.02 [facility] Comment on above: Performed By: #### T SH, FT3, CMP, LIPID #### [facility] [address] [address] [address] Kalin Farrell EGFR-AF IVORIAN >60 Normal >=[address] [facility] Comment on above: Performed By: #### T SH, FT3, CMP, LIPID #### [facility] [address] [place] [address] Dr. Kalin Farrell EGFR-NON AF IVORIAN >60 Normal >=60 [facility] Comment on above: Performed By: #### T SH, FT3, CMP, LIPID #### [facility] [address] [address] [address] Kalin Farrell Globulin (S) [Mass/Vol] 4.0 g/dL Normal [facility] Comment on above: Performed By: #### T SH, FT3, CMP, LIPID #### [facility] Laboratory [address] [place] [address] Dr. Kalin Farrell Glucose [Mass/Vol] 99 mg/dL Normal 74-106 [facility] Comment on above: Performed By: #### T SH, FT3, CMP, LIPID #### [facility] [address] [place] [address] Dr. Kalin Farrell Potassium [Moles/Vol] 3.8 mmol/L Normal 3.5-5.1 [facility] Comment on above: Performed By: #### T SH, FT3, CMP, LIPID #### [facility] [address] [place] [address] Dr. Kalin Farrell Protein [Mass/Vol] 7.5 g/dL Normal 6.4-8.2 [facility] Comment on above: Performed By: #### T SH, FT3, CMP, LIPID #### [facility] [address] [place] [address] Dr. Kalin Farrell Sodium [Moles/Vol] 141 mmol/L Normal 136-145 [facility] Comment on above: Performed By: #### T SH, FT3, CMP, LIPID #### [facility] [address] [place] [address] Dr. Kalin Farrell Urea nitrogen [Mass/Vol] 13.0 mg/dL Normal 7.0-18.0 [facility] Comment on above: Performed By: #### T SH, FT3, CMP, LIPID #### [facility] [address] [place] [address] Dr. Kalin Farrell Urea nitrogen/Creatinine [Mass ratio] 15.1 mg/mg Normal [facility] Comment on above: Performed By: #### T SH, FT3, CMP, LIPID #### [facility] [address] [place] [address] Dr. Kalin Farrell TSHon 02-23-2023 TSH 1.804 uIU/mL Normal 0.358-3.740 [facility] Comment on above: Performed By: #### [id number] #### [facility] [address] [place] [address] Dr. Kalin Farrell XR CHEST 2 Von [...] AKI ARZATE Date: 2023-01-18 11:[address] [facility] CULTURE THROATon 01-17-2023 CULTURE THROAT Isolate [...] F Tetracycline >=16 R F Normal [facility] Comment on above: Performed By: #### [id number] #### [facility] [address] [place] [address] ABD/PELVIS WO CONon [...] DEEPAK WILLIAMSON Date: 2022-09-27 13:[address] [facility] CULTURE URINEon 09-27-2022 CULTURE URINE Culture Observations : NO GROWTH. Normal [facility] Comment on above: Performed By: #### [id number] #### [facility] [address] [address] [address] Kalin Farrell ER URINE PROFILEon 2 Bilirubin Ql (U) Negative Normal NEGATIVE The [facility] Comment on above: Performed By: #### P REGU, UMICRO, ERUR #### [facility] [address] [address] [address] Kalin Farrell Clarity (U) CLEAR Normal CLEAR [facility] Comment on above: Performed By: #### P REGU, UMICRO, ERUR #### [facility] [address] [address] [address] Kalin Farrell Color (U) LT. YELLOW Normal YELLOW [facility] Comment on above: Performed By: #### P REGU, UMICRO, ERUR #### [facility] [address] [address] [address] Kalin RECINOSD A micrscopic examination will be performed if indicated. Normal [facility] Comment on above: Performed By: #### P REGU, UMICRO, ERUR #### [facility] [address] [address] [address] Kalin Farrell Glucose Ql (U) Negative Normal NEGATIVE The [facility] Comment on above: Performed By: #### P REGU, UMICRO, ERUR #### [facility] [address] [address] [address] Kalin Farrell Hemoglobin Ql (U) LARGE Abnormal NEGATIVE The [facility] Comment on above: Performed By: #### P REGU, UMICRO, ERUR #### [facility] [address] [address] [address] Kalin Farrell Ketones Ql (U) Negative Normal NEGATIVE The [facility] Comment on above: Performed By: #### P REGU, UMICRO, ERUR #### [facility] [address] [address] [address] Kalin Farrell LEUKOCYTES Negative Normal NEGATIVE [facility] Comment on above: Performed By: #### P REGU, UMICRO, ERUR #### [facility] [address] [address] [address] Kalin Farrell Nitrite Ql (U) Positive Abnormal NEGATIVE The [facility] Comment on above: Performed By: #### P REGU, UMICRO, ERUR #### [facility] [address] [address] [address] Kalin Farrell pH (U) 6.0 [pH] Normal 5-9 [facility] Comment on above: Performed By: #### P REGU, UMICRO, ERUR #### [facility] [address] [address] [address] Kalin Farrell SPEC GRAVITY 1.010 Normal 1.005-<=1.025 [facility] Comment on above: Performed By: #### P REGU, UMICRO, ERUR #### [facility] [address] [address] [address] Kalin Farrell UA PROTEIN Negative Normal NEGATIVE/ TRACE [facility] Comment on above: Performed By: #### P REGU, UMICRO, ERUR #### [facility] [address] [address] [address] Kalin Farrell UR MICRO IND INDICATED Normal [facility] Comment on above: Performed By: #### P REGU, UMICRO, ERUR #### [facility] [address] [address] [address] Kalin Farrell Urobilinogen Qn (U) 0.2 {Rere'U}/dL Normal 0.2 - 1. 0 [facility] Comment on above: Performed By: #### P REGU, UMICRO, ERUR #### [facility] [address] [address] [address] Kalin Farrell URon 09-27-2022 , QUAL Negative Normal NEGATIVE [facility] Comment on above: Performed By: #### P REGU, UMICRO, ERUR #### [facility] [address] [address] [address] Kalin Farrell URINE MICROSCOPIC ONLYon BACTERIA TRACE Abnormal NONE SEEN [facility] Comment on above: Performed By: #### P REGU, UMICRO, ERUR #### [facility] [address] [address] [address] Kalin Farrell Bacteria identified Cx Nom (U) INDICATED Normal [facility] Comment on above: Performed By: #### P REGU, UMICRO, ERUR #### [facility] [address] [address] [address] Kalin Farrell CAST NONE SEEN Normal NONE SEEN [facility] Comment on above: Performed By: #### P REGU, UMICRO, ERUR #### [facility] [address] [address] [address] Kalin Farrell Crystals LM Nom (Urine sed) NONE SEEN Normal NONE SEEN [facility] Comment on above: Performed By: #### P REGU, UMICRO, ERUR #### [facility] [address] [address] [address] Kalin Farrell Epithelial cells LM Ql (Urine sed) FEW Abnormal NONE SEEN /RARE [facility] Comment on above: Performed By: #### P REGU, UMICRO, ERUR #### [facility] [address] [address] [address] Kalin Farrell MUCOUS NONE SEEN Normal NONE SEEN [facility] Comment on above: Performed By: #### P REGU, UMICRO, ERUR #### [facility] [address] [address] [address] Kalin Farrell RBC 10-20 Abnormal 0-[address] [facility] Comment on above: Performed By: #### P REGU, UMICRO, ERUR #### [facility] [address] [address] [address] Kalin Farrell WBC NONE SEEN Normal NONE SEEN [facility] Comment on above: Performed By: #### P REGU, UMICRO, ERUR #### [facility] [address] [address] [address] Kalin Farrell FREE T3on 07-16-2022 FREE T3 2.00 pg/mlL Critically low 2.18-3.98 [facility] Comment on above: Performed By: #### H CGSUB #### [facility] [address] [place] [address] Dr. Kalin Farrell FREE T4on 07-16-2022 Free T4 [Mass/Vol] 1.04 ng/dL Normal 0.76-1.46 [facility] Comment on above: Performed By: #### [id number] #### [facility] [address] [place] [address] Dr. Kalin Farrell TSHon 07-16-2022 TSH 0.488 uIU/mL Normal 0.358-3.740 [facility] Comment on above: Performed By: #### H CGSUB #### [facility] [address] [place] [address] Dr. Kalin Farrell HCG-BETA SUBUNIT QUANTon hCG,Beta Subunit,Qnt,Serum <1 Normal [facility] Comment on above: Result Comment: Fema le (Non-) 0 - 5 (Postmenopausal) 0 - 8 . Female () Weeks of Gestation 3 6 - 71 4 10 - 750 5 985 - 7329 6 820 - 26294 7 2442 -534453 8 54519 -539759 9 48770 -668821 10 90964 -193514 12 72848 -350852 14 48797 - 77992 15 97049 - 47706 16 8201 - 21553 17 6716 - 19470 18 2591 - 25699 Josselin ECLIA methodology Performed By: #### H CGSUB #### [facility] [address] [place] [address] Dr. Kalin Farrell CBC AUTO DIFFon 06-03-2022 BASO # 0.0 103/ul Normal 0.0-0.1 [facility] Comment on above: Performed By: #### H CGSUB #### [facility] [address] [place] [address] Dr. Kalin Farrell Basophils/100 WBC (Bld) 0.5 % Normal 0.2-2.0 [facility] Comment on above: Performed By: #### H CGSUB #### [facility] [address] [place] [address] Dr. Kalin Farrell EO # 0.1 103/ul Normal 0.0-0.[address] [facility] Comment on above: Performed By: #### H CGSUB #### [facility] [address] [place] [address] Dr. Kalin Farrell Eosinophils/100 WBC (Bld) 2.2 % Normal 0.9-7.[address] [facility] Comment on above: Performed By: #### H CGSUB #### [facility] [address] [place] [address] Dr. Kalin Farrell Erythrocyte distribution width (RBC) [Ratio] 13.1 % Normal 11.0-15.[address] [facility] Comment on above: Performed By: #### H CGSUB #### [facility] [address] [place] [address] Dr. Kalin Farrell Hematocrit (Bld) [Volume fraction] 39.1 % Normal 36.0-48.0 [facility] Comment on above: Performed By: #### H CGSUB #### [facility] [address] [place] [address] Dr. Kalin Farrell Hemoglobin (Bld) [Mass/Vol] 12.5 g/dL Normal 12.0-16.0 [facility] Comment on above: Performed By: #### H CGSUB #### [facility] [address] [place] [address] Dr. Kalin Farrell IG # 0.01 10e3/ul Normal 0.00-0.[address] [facility] Comment on above: Performed By: #### H CGSUB #### [facility] [address] [place] [address] Dr. Kalin Farrell IG % 0.2 % Normal 0.0-0.[address] [facility] Comment on above: Performed By: #### H CGSUB #### [facility] [address] [place] [address] Dr. Kalin Farrell LYMPH # 2.2 103/ul Normal 1.2-3.[address] [facility] Comment on above: Performed By: #### H CGSUB #### [facility] [address] [place] [address] Dr. Kalin Farrell Lymphocytes/100 WBC (Bld) 38.6 % Normal 20.5-60.0 [facility] Comment on above: Performed By: #### H CGSUB #### [facility] [address] [place] [address] Dr. Kalin Farrell MANUAL DIFF REQ NO Normal [facility] Comment on above: Performed By: #### H CGSUB #### [facility] [address] [place] [address] Dr. Kalin Farrell MCH (RBC) [Entitic mass] 28.7 pg Normal 26.7-34.0 [facility] Comment on above: Performed By: #### H CGSUB #### [facility] [address] [place] [address] Dr. Kalin Farrell MCHC (RBC) [Mass/Vol] 32.0 g/dL Normal 29.9-35.2 [facility] Comment on above: Performed By: #### H CGSUB #### [facility] [address] [place] [address] Dr. Kalin Farrell MCV (RBC) [Entitic vol] 89.7 fL Normal 81.0-99.0 [facility] Comment on above: Performed By: #### H CGSUB #### [facility] [address] [place] [address] Dr. Kalin Farrell MONO # 0.3 103/ul Normal 0.3-0.[address] [facility] Comment on above: Performed By: #### H CGSUB #### [facility] [address] [place] [address] Dr. Kalin Farrell Monocytes/100 WBC (Bld) 5.6 % Normal 1.7-12.[address] [facility] Comment on above: Performed By: #### H CGSUB #### [facility] [address] [place] [address] Dr. Kalin Farrell NEUT # 3.0 103/ul Normal 1.4-6.[address] [facility] Comment on above: Performed By: #### H CGSUB #### [facility] [address] [address] [address] Kalin Farrell Neutrophils/100 WBC (Bld) 52.9 % Normal 43.0-75.0 [facility] Comment on above: Performed By: #### H CGSUB #### [facility] [address] [address] [address] Kalin Farrell Platelet mean volume (Bld) [Entitic vol] 9.3 fL Critically low 9.5-13.5 [facility] Comment on above: Performed By: #### H CGSUB #### [facility] [address] [place] [address] Dr. Kalin Farrell PLT 302 103/ul Normal 150-450 [facility] Comment on above: Performed By: #### H CGSUB #### [facility] [address] [place] [address] Dr. Kalin Farrell RBC 4.36 106/ul Normal 4.20-5.40 [facility] Comment on above: Performed By: #### H CGSUB #### [facility] [address] [place] [address] Dr. Kalin Farrell WBC 5.6 103/ul Normal 4.0-11.0 [facility] Comment on above: Performed By: #### H CGSUB #### [facility] [address] [place] [address] Dr. Kalin Farrell Covid-19 PCR (CVDTB)on 05-18 SARS-CoV-2 (COVID-19) RNA KARINA+probe Ql (Unsp spec) Not detected Normal NOT DETECTED [facility] Comment on above: Result Comment: This test is not yet approved or cleared by the [place] FDA. When there are no FDA-approved or cleared tests available, and other criteria are met, FDA can make tests available under an emergency access mechanism called an Emergency Use Authorization (EUA). The EUA for this test is supported by the [place] of Health and Human Service's (HHS's) declaration [...] consistent with SARS-CoV-2. Performed By: #### [id number] #### [facility] [address] [place] [address] Dr. Kalin Farrell PAP ACOG PANEL 2: 30 to 65on 05-11-2022 . . Normal [facility] Comment on above: Result Comment: Perf ormed at: WB Performed By: #### [id number] #### [facility] [address] [place] [address] Dr. Kalin Farrell Age Gdln ACOG Testing 30-65 Normal [facility] Comment on above: Performed By: #### [id number] #### [facility] [address] [place] [address] Dr. Kalin Farrell DIAGNOSIS: Comment Normal [facility] Comment on above: Result Comment: NEGA TIVE FOR INTRAEPITHELIAL LESION OR MALIGNANCY. Performed at: WB Performed By: #### [id number] #### [facility] [address] [place] [address] Dr. Kalin Farrell HPV Aptima Negative Normal Negative [facility] Comment on above: Result Comment: This nucleic acid amplification test detects fourteen high-risk HPV types (16,18,31,33,35,39,45,51,52,56,58,59,66,68) without differentiation. Performed at: =G Performed By: #### [id number] #### [facility] [address] [place] [address] Dr. Kalin Farrell Methodology: Comment Normal [facility] Comment on above: Result Comment: This liquid based ThinPrep(R) pap test was screened with the use of an image guided system. Performed at: WB Performed By: #### [id number] #### [facility] [address] [place] [address] Dr. Kalin Farrell Note: Comment [facility] Comment on above: Result Comment: The Pap smear is a screening test designed to aid in the detection of premalignant and malignant conditions of the uterine cervix. It is not a diagnostic procedure and should not be used as the sole means of detecting cervical cancer. Both false-positive and false-negative reports do occur. . Performed at: WB Performed By: #### [id number] #### [facility] [address] [address] [address] Kalin Farrell Performed by: Comment Normal [facility] Comment on above: Result Comment: Katiuska Kumar, Panelboard Operator Performed at: WB Performed By: #### [id number] #### [facility] [address] [place] [address] Dr. Kalin Farrell Specimen adequacy: Comment Normal [facility] Comment on above: Result Comment: Sati sfactory for evaluation. Endocervical and/or squamous metaplastic cells (endocervical component) are present. Performed at: WB Performed By: #### [id number] #### [facility] [address] [place] [address] Dr. Kalin Farrell Vital Signs Date Time Vital Sign Value Performing Clinician Facility 09-28-2023 14:00-0500 Body height 163.83 cm Elfego Guardado Other [facility] Other 09-28-2023 14:00-0500 Body mass index (BMI) [Ratio] 35.54 kg/m2 Elfego Guardado Other [facility] Other 09-28-2023 14:00-0500 Body weight 95.39 kg Elfego Guardado Other [facility] Other 09-28-2023 14:00-0500 Diastolic blood pressure 63 mm[Hg] Elfego Guardado Other [facility] Other 12-12-2023 14:00-0500 Systolic blood pressure 101 mm[Hg] Elfego Portilloack Other [facility] Other 07-10-2022 13:50-0400 Body height 163.83 cm Rosa Olivo Other [facility] Other 07-10-2022 13:50-0400 Body mass index (BMI) [Ratio] 34.98 kg/m2 Rosa Olivo Other [facility] Other 07-10-2022 13:50-0400 Body temperature 98.1 [degF] Rosa Olivo Other [facility] Other 07-10-2022 13:50-0400 Body weight 93.9 kg Rosa Sidhuler Other [facility] Other 07-10-2022 13:50-0400 Diastolic blood pressure 64 mm[Hg] Rosa Olivo Other [facility] Other 07-10-2022 13:50-0400 Respiratory rate 18 /min Rosa Olivo Other [facility] Other 07-10-2022 13:50-0400 SaO2% (BldA) [Mass fraction] 98 % Rosa Olivo Other [facility] Other 07-10-2022 13:50-0400 Systolic blood pressure 107 mm[Hg] Rosa Olivo Other [facility] Other 04-16-2022 16:15-0400 Body height 163.83 cm Elfego Guardado Other [facility] Other 04-16-2022 16:15-0400 Body mass index (BMI) [Ratio] 34.98 kg/m2 Elfego Guardado Other [facility] Other 04-16-2022 16:15-0400 Body weight 93.9 kg Elfego Guardado Other [facility] Other 09-05-2021 12:20-0500 Body height 163.83 cm Annemarie Josi Other [facility] Other 09-05-2021 12:20-0500 Body mass index (BMI) [Ratio] 35.55 kg/m2 Annemarie Josi Other [facility] Other 09-05-2021 12:20-0500 Body temperature 98.9 [degF] Annemarie Josi Other [facility] Other 09-05-2021 12:20-0500 Body weight 95.44 kg Annemarie Josi Other [facility] Other 09-05-2021 12:20-0500 Diastolic blood pressure 66 mm[Hg] Annemarie Josi Other [facility] Other 09-05-2021 12:20-0500 Respiratory rate 18 /min Annemarie Josi Other [facility] Other 09-05-2021 12:20-0500 SaO2% (BldA) [Mass fraction] 100 % Annemarie Josi Other [facility] Other 09-05-2021 12:20-0500 Systolic blood pressure 108 mm[Hg] Annemarie Prater Other [facility] Other Encounters Encounter Date Encounter Type Care Provider Facility Start: 12-22-2023 End: 12-23-2023 ambulatory Regino SIMMONS [facility] Start: 12-22-2023 End: 12-23-2023 ambulatory Regino SIMMONS [facility] Start: 12-20-2023 End: 12-20-2023 ambulatory DAVID AICHHOLZ Not Available Start: 09-28-2023 End: 09-28-2023 ambulatory Elfego Guardado Other [facility] Other Start: 09-28-2023 Office outpatient vi sit 15 minutes Elfego Guardado [facility] Start: 08-31-2023 End: 08-31-2023 ambulatory MAUDE FLYNN Not Available Start: 08-16-2023 End: 08-17-2023 ambulatory Marilu Bello Facility:[facility] Leatha quispe Start: 07-09-2023 End: 07-10-2023 ambulatory Amy FREEMAN Facility:[facility] Start: 03-03-2023 End: 03-03-2023 ambulatory [facility] DAVID AICHHOLZ Facility:[facility] Start: 02-23-2023 End: 02-24-2023 ambulatory [facility] SPECIALIST DAVID AICHHOLZ Facility:[facility] Start: 01-18-2023 End: 01-19-2023 ambulatory [employer] SPECIALIST DAVID AICHHOLZ Facility:[facility] Start: 01-14-2023 End: 01-14-2023 ambulatory AUT[facility] SPECIALIST DAVID AICHHOLZ Facility:[facility] Start: 09-27-2022 End: 09-27-2022 ambulatory [facility] SPECIALIST DAVID AICHHOLZ Facility:[facility] Start: 08-20-2022 End: 08-20-2022 ambulatory Elfego Guardado Other [facility] Start: 08-20-2022 Telephone encounter Elfego Sullivan ck [facility] Start: 07-16-2022 End: 07-17-2022 ambulatory AUT[employer] SPECIALIST DAVID AICHHOLZ Facility:[facility] Start: 07-10-2022 End: 07-10-2022 ambulatory Rosa Olivo Other [facility] Other Start: 07-10-2022 Office outpatient vi sit 25 minutes Rosa Olivo [facility] Start: 06-05-2022 End: 06-05-2022 ambulatory PRASHANTH SO Facility:[facility] Start: 06-04-2022 Encounter for preprocedural laboratory examination DR MANDY NOE . [facility] Start: 06-03-2022 End: 06-04-2022 ambulatory PRASHANTH SO Facility:[facility] Start: 06-03-2022 End: 06-04-2022 Encounter for preprocedural laboratory examination PRASHANTH DAVID SO Facility:[facility] Start: 05-28-2022 Encounter for other preprocedural examination DR MANDY NOE . [facility] Start: 05-27-2022 End: 05-28-[address] MANDY NOE . Facility:[facility] Start: 05-27-2022 End: 05-28-2022 Encounter for other preprocedural examination DR MANDY NOE . Facility:[facility] Start: 05-06-2022 End: 05-06-[address] MANDY NOE . Facility:[facility] Start: 04-16-2022 End: 04-16-2022 ambulatory Elfego Guardado Other [facility] Other Start: 04-16-2022 Patient encounter procedure Elfego Guardado [facility] Start: 09-25-2021 End: 09-25-2021 ambulatory Elfego Duronormack Other [facility] Other Start: 09-25-2021 Telephone encounter Elfego Nate miguel [facility] Start: 09-05-2021 End: 09-05-2021 ambulatory Annemarie Prater Other [facility] Other Start: 09-05-2021 Office outpatient vi sit 15 minutes Annemarie Prater [facility] Payers Date Payer Category Payer Unknown [id number] 2018 Medicaid [id number] 1985 Unknown [id number] 2.16.84 [id number] 1986 Unknown [id number] 2.16.84 [id number] 1986 Unknown [id number] 2.16.84 0.1.927234.3.579.2.593 1986 Unknown [id number] 2.16.84 0.1.304867.3.579.2.593 1986 Unknown [id number] 2.16.84 0.1.882008.3.579.2.593 1986 Unknown [id number] 2.16.84 0.1.801444.3.579.2.593 1986 Unknown [id number] 2.16.84 0.1.535839.3.579.2.593 1986 Unknown [id number] 2.16.84 0.1.435997.3.579.2.593 1986 Unknown [id number] 2.16.84 0.1.567823.3.579.2.593 1986 Unknown [id number] 2.16.84 0.1.241765.3.579.2.593 1986 Unknown [id number] 2.16.84 0.1.839467.3.579.2.1259 1986 Unknown [id number] 2.16.840. 1.962435.3.579.2.1259 1986 Unknown [id number] 2.16.8 40.1.426738.3.579.2.727 1986 Unknown [id number] 2.16.8 40.1.842332.3.579.2.727 1986 Unknown [id number] 2.16.8 40.1.072296.3.579.2.727 1959 Unknown [id number] 2.1 [id number] 1959 Unknown [id number] Social History Date Type Detail Facility Unknown if ever smoked [facility] Other Sex Assigned At Sex Assigned At Bir th [facility] Other Evaluation note 09-28-2023 Note Date & Type Note Facility 09-28-2023 Evaluation note Encounter Date Diagnosis Assessment Notes Sep, Abdominal pain (ICD-10 - R10.9) Pt states the diarrhea is better. Pt to proceed with colonoscopy. Sep, Heartburn (ICD-10 - R12) Pt to take Gaviscon [facility] Other Evaluation note 08-20-2022 Note Date & Type Note Facility 08-20-2022 Evaluation note Encounter Date Diagnosis Assessment Notes Aug, GERD (gastroesop hageal reflux disease) (ICD-10 - K21.9) [facility] Other Evaluation note 07-10-2022 Note Date & [...] understanding and is agreeable to treatment plan [facility] Other Clinical Note 06-05-2022 Note Date & Type Note Facility 06-05-2022 Note OPERATIVE NOTE OPERATION DATE: 06/05/2022 PROCEDURE: Bilateral laparoscopic salpingectomy. PREOPERATIVE DIAGNOSIS: Desires permanent sterilization, pelvic pain. POSTOPERATIVE DIAGNOSIS: Desires permanent sterilization, pelvic pain. ANESTHESIA: General. SURGEON: Mandy Noe D.O. DIRECTOR OF TEENAGE ACTIVITIES: KATHARINA Sims URINE OUTPUT: Yellow and clear. [...] and needle counts were correct x2. [facility] Evaluation note 04-16-2022 Note Date & Type Note Facility 04-16-2022 Evaluation note Encounter Date Diagnosis Assessment Notes Mar, GERD (gastroesopha geal reflux disease) (ICD-10 - K21.9) RTO 1 YR Mar, Abdominal pain (ICD-10 - R10.9) [facility] Other Evaluation note 09-25-2021 Note Date & Type Note Facility 09-25-2021 Evaluation note Encounter Date Diagnosis Assessment Notes Sep, Abdominal pain (ICD-10 - R10.9) [facility] Other Evaluation note 09-05-2021 Note Date & Type Note Facility 09-05-2021 Evaluation note Encounter Date Diagnosis Assessment Notes Aug, Otitis externa of right ear, unspecified chronicity, unspecified type (ICD-10 - H60.91) Aug, Acute sinusitis, recurrence not specified, unspecified location (ICD-10 - J01.90) Aug, Other Otitis externa material was printed [facility] Other History general Narrative - Reported Note Date & Type Note Facility History general Narrative - Reported Type Medical History graves disease Medical History Esophageal reflux Medical History migraines Hospitalization History child [facility] Other History general Narrative - Reported Note Date & Type Note Facility History general Narrative - Reported Type Medical History graves disease Medical History Esophageal reflux Medical History migraines Surgical History tubal ligation Surgical History laparoscopy Hospitalization History child [facility] Other Summary Purpose Family History No Family [...] content) DATE CREATED AUTHOR 03/04/2023 [facility] DATE CREATED AUTHOR AUTHOR'S ORGANIZ ATION 12/21/2023 [facility] EPIC DATE CREATED AUTHOR AUTHOR'S ORGANIZ ATION 12/23/2023 [facility] FOR RECORDS PERTAINING TO PATIENTS WHO [...] BE BASED ON THE PRIMARY CLINICAL RECORDS. [employer] provides no warranty or guarantee of the accuracy or completeness of information in this document.
[2024-08-23 19:30] VITALS: O2SAT 97
--- NOTE | 2024-08-23 19:34 | US_ITS ---
The [address] [address] Patient Name: ADOLFO PRESTON MRN: [id number] date: 1985 Sex: F Assigned Patient Location: ED.MAIN Current Patient Location: ED.MAIN Accession/Order Number: [id number] Exam Date: 08/23/2024 20:15 Report Date: 08/24/2024 00:46 At the request of: RENEE LARA Procedure: US pelvis transvaginal EXAM: US pelvis transvaginal HISTORY: Vaginal bleeding COMPARISON: Pelvic ultrasound 07/10/2019 TECHNIQUE: Pelvic sonography was performed utilizing both transabdominal and transvaginal techniques. FINDINGS: Anteverted uterus measures 9.2 x 4.3 x 5.8 cm. Heterogeneously hypoechoic myometrial structures measuring up to 1.8 cm at the uterine body, intramural. A 1.4 cm focus abuts the endometrial stripe at the uterine body. Uterine endometrial stripe measures 0.5 cm in thickness. Right ovary not visualized due to overlying bowel gas. Left ovary measures 3.5 x 3.3 x 3.3 cm (19.7 mL). Normal vascularity. Hypoechoic ovoid focus measuring up to 2.9 cm without associated vascularity. No sonographic evidence of free fluid within the pelvis. US/US pelvis transvaginal IMPRESSION: 1. Leiomyomatous uterus, to include a submucosal lesion. Largest measuring up to 1.8 cm. 2. Indeterminate focus within the left ovary favored to represent a physiologic cyst. Consider follow-up ultrasound in 6-12 weeks to ensure resolution. 3. Nonvisualized right ovary. Electronically authenticated by: MARY RAMESH Date: 08/24/2024 00:46
--- NOTE | 2024-08-23 19:35 | ED_ITS ---
<Statement entered by Josse Mcqueen MD - 08/24/24 01:22> This documentation has been reviewed and approved. Chart was sent to my inbox for administrative and group management purposes. I was the attending physicians working during the patients hospital course. The patient was seen and managed independently by the MLP. I did not personally see or evaluate this patient, nor was I involved in the patient medical decision making process or plans of care. Pt was dispositioned by the MLP with complete independence and I was not involved in planning. I was available for c onsultation should the MLP request during this patients ED stay. HPI - Female Genitourinary General Chief complaint: Urogenital-Female Stated complaint: Vaginal Bleeding Time Seen by Provider: 08/23/24 19:11 Source: patient Mode of arrival: walk-in Limitations: no limitations History of Present Illness HPI Narrative: Patient is a 39-year-old female who presents to the emergency department to be evaluated for pelvic pain and vaginal bleeding. Patient states she has had heavy vaginal bleeding for 2 to 3 weeks. She has a history of ovarian torsion and states that in the last day she has developed left-sided pelvic pain and she is concerned that she may have another ovarian torsion. She states that her primary care provider checked basic lab studies yesterday for her thyroid she has a history of Graves' disease. Patient admits that she does not have health insurance and she came to the emergency department tonight hoping that we could perform imaging to rule out ovarian torsion or cancer. No flank pain or urinary symptoms. Related Data Previous Rx's ?Medication ?Instructions ?Recorded ketorolac 10 mg tablet 10 mg PO TID PRN pain #10 tabs 08/23/24 Allergies Allergy/AdvReac Type Severity Reaction Status Date / Time morphine AdvReac Intermediate Vomiting Verified 08/23/24 19:15 Penicillins AdvReac Mild Rash Verified 08/23/24 19:15 Review of Systems ROS Constitutional Denies: fever or chills Cardiovascular Denies: chest pain Respiratory Denies: shortness of breath or cough Gastrointestinal Denies: nausea or vomiting Genitourinary Reports: pelvic pain Integumentary/Breast Denies: rash Neurological Denies: numbness in extremities or weakness in extremities Hematologic/Lymphatic Denies: easy bruising or easy bleeding Exam Narrative Exam Narrative: Gen.: Awake, alert, in no distress Head: Normocephalic, atraumatic ENT: Moist mucous membranes Respiratory: No respiratory distress Gastrointestinal: Abdomen is soft, nondistended and diffusely tender to palpation in the bilateral pelvis with no pain out of proportion on exam. No guarding or rebound Extremities: Moves extremities equally Psych: Normal mood and affect Neuro: No focal neuro deficit Skin: Warm, dry, intact Constitutional Vital Signs, click to edit/add: Last Vital Signs Temp 97.9 F 08/23/24 19:16 Pulse 73 08/23/24 19:16 Resp 16 08/23/24 19:16 BP 102/78 08/23/24 19:16 Pulse Ox 97 08/23/24 19:30 O2 Del Method Room Air 08/23/24 19:30 Course Vital Signs Vital signs: Vital Signs Temperature 97.9 F 08/23/24 19:16 Pulse Rate 73 08/23/24 19:16 Respiratory Rate 16 08/23/24 19:16 Blood Pressure 102/78 08/23/24 19:16 Pulse Oximetry 98 08/23/24 19:16 Oxygen Delivery Method Room Air 08/23/24 19:16 Temperature 97.9 F 08/23/24 19:16 Pulse Rate 73 08/23/24 19:16 Respiratory Rate 16 08/23/24 19:16 Blood Pressure 102/78 08/23/24 19:16 Pulse Oximetry 97 08/23/24 19:30 Oxygen Delivery Method Room Air 08/23/24 19:30 MDM - Female Genitourinary MDM Narrative Medical decision making narrative: Patient with a benign exam, hemodynamically stable with unremarkable vital signs. She has no pain out of proportion on exam. Ultrasound shows a 2.8 cm left ovarian cyst with multiple small uterine fibroids measuring up to 2 cm. Patient was given education and reassurance. NSAIDs given for discomfort for home and she was referred to DIRECTOR OF PHYSICAL SECURITY. Return to the ER if symptoms change or worsen. SUPERVISED APC VISIT, PHYSICIAN ATTESTATION: Based on the medical record the care appears appropriate. ? Medical Records Attestation: I reviewed the patient's medical records. Lab Data Attestation: I reviewed the patient's lab results. Labs: Lab Results 08/23/24 08/23/24 Range/Units 20:05 20:07 WBC 7.9 (4.0-11.0) 10^3/uL RBC 4.27 (4.20-5.40) 10^6/uL Hgb 12.0 (12.0-16.0) g/dL Hct 37.6 (36.0-48.0) % MCV 88.1 (81.0-99.0) fL MCH 28.1 (26.7-34.0) pg MCHC 31.9 (29.9-35.2) g/dL RDW 14.0 (11.0-15.0) % Plt Count 361 (150-450) 10^3/uL MPV 8.6 L (9.5-13.5) fL Neut % (Auto) 56.7 (43.0-75.0) % Lymph % (Auto) 35.5 (20.5-60.0) % Patrick % (Auto) 5.4 (1.7-12.0) % Eos % (Auto) 1.6 (0.9-7.0) % Baso % (Auto) 0.5 (0.2-2.0) % Neut # (Auto) 4.5 (1.4-6.5) 10^3/uL Lymph # (Auto) 2.8 (1.2-3.8) 10^3/uL Patrick # (Auto) 0.4 (0.3-0.8) 10^3/uL Eos # (Auto) 0.1 (0.0-0.7) 10^3/uL Baso # (Auto) 0.0 (0.0-0.1) 10^3/uL Abs Immat Gran (auto) 0.02 (0.00-0.03) 10^3/uL Imm/Tot Granulo (auto) 0.3 (0.0-0.5) % PT 10.1 (9.0-11.6) sec INR 0.95 Urine Color Lt. yellow (YELLOW) Urine Clarity Clear (CLEAR) Urine pH 7.0 (5.0-9.0) Ur Specific [place] <=1.005 A (1.005-1.025) Urine Protein Negative (NEG/TRACE) mg/dL Urine Glucose (UA) Negative (NEGATIVE) mg/dL Urine Ketones Negative (NEGATIVE) mg/dL Urine Occult Blood Moderate A (NEGATIVE) Urine Nitrite Negative (NEGATIVE) Urine Bilirubin Negative (NEGATIVE) Urine Urobilinogen 0.2 (0.2-1.0) EU/dL Ur Leukocyte Esterase Negative (NEGATIVE) Urine RBC 0-2 (0-2) #/HPF Urine WBC 0-2 A (NONE SEEN) #/HPF Ur Squamous Epith Cells Rare (NONE/RARE) #/LPF Urine Crystals None seen (None Seen) #/HPF Urine Bacteria Trace A (NONE SEEN) #/HPF Urine Casts None seen (NONE SEEN) #/LPF Urine Mucus None seen (NONE SEEN) Ur Culture Indicated? No Urine HCG, Qual Negative (NEGATIVE) Imaging Data US - abdomen: Attestation: I have reviewed the pertinent imaging results. Discharge Plan Discharge Chief Complaint: Urogenital-Female Clinical Impression: Dysfunctional uterine bleeding, Cyst of left ovary, Uterine fibroid Patient Disposition: Home, Self-Care Time of Disposition Decision: 21:06 Condition: Good Prescriptions / Home Meds: New ketorolac 10 mg tablet 10 mg PO TID PRN (Reason: pain) Qty: 10 0RF Print Language: [place] Instructions: Abnormal (Dysfunctional) Uterine Bleeding (ED), Ovarian Cyst (ED), Uterine Fibroids (ED) Referrals: Jeremy Noe DO [Physician] - As soon as possible Kathy Reddy NP [Primary Care Provider] - 1 week
[2024-08-23] MEDS: KETOROLAC TROMETHAMINE 10 MG TABLET PO (20:11)
[2024-08-23 20:22] LABS: Basophils Percent Auto 0.5 % (0.2-2.0); Eosinophils Absolute Auto 0.1 10^3/uL (0.0-0.7); Eosinophils Percent Auto 1.6 % (0.9-7.0); Hematocrit 37.6 % (36.0-48.0); Immature Granulocytes Abs Auto 0.02 10^3/uL (0.00-0.03); Immature Granulocytes Pct Auto 0.3 % (0.0-0.5); Lymphocytes Absolute Auto 2.8 10^3/uL (1.2-3.8); Lymphocytes Percent Auto 35.5 % (20.5-60.0); Mean Corpuscular HGB Conc 31.9 g/dL (29.9-35.2); Mean Corpuscular Hemoglobin 28.1 pg (26.7-34.0); Mean Corpuscular Volume 88.1 fL (81.0-99.0); Mean Platelet Volume 8.6 fL (9.5-13.5); Monocytes Absolute Auto 0.4 10^3/uL (0.3-0.8); Monocytes Percent Auto 5.4 % (1.7-12.0); Neutrophils Absolute Auto 4.5 10^3/uL (1.4-6.5); Neutrophils Percent Auto 56.7 % (43.0-75.0); Platelet Count 361 10^3/uL (150-450); Red Blood Count 4.27 10^6/uL (4.20-5.40); White Blood Count 7.9 10^3/uL (4.0-11.0)
[2024-08-23 20:31] LABS: Bilirubin Urine NEGATIVE (NEGATIVE); Blood Urine MODERATE (NEGATIVE); Clarity Urine CLEAR (CLEAR); Color Urine LT. YELLOW (YELLOW); Glucose Urine UA NEGATIVE (NEGATIVE); Ketones Urine NEGATIVE (NEGATIVE); Leukocyte Esterase Urine NEGATIVE (NEGATIVE); Nitrite Urine NEGATIVE (NEGATIVE); Protein Urine NEGATIVE (NEG/TRACE); Specific Gravity Urine <=1.005 (1.005-1.025); Urobilinogen Urine 0.2 EU/dL (0.2-1.0)
[2024-08-23 20:35] LABS: HCG Qualitative Urine* NEGATIVE (NEGATIVE); Internal Control Within Normal Limits
[2024-08-23 20:43] LABS: Urine Microscopic Indicated YES
[2024-08-23 20:45] LABS: INR 0.95; Prothrombin Time 10.1 sec (9.0-11.6)
[2024-08-23 21:03] LABS: Bacteria Urine TRACE #/HPF (NONE SEEN); Cast Seen? NONE SEEN #/LPF (NONE SEEN); Crystals Seen? None Seen #/HPF (None Seen); Mucus Urine NONE SEEN (NONE SEEN); RBC Urine 0-2 #/HPF (0-2); Squamous Epithelial Cell Urine RARE #/LPF (NONE/RARE); Urine Culture Indicated NO; WBC Urine 0-2 #/HPF (NONE SEEN)
[2024-08-26 07:08] LABS: Neisseria gonorrhoeae, NAA Negative (Negative)
== END 2024-08-23 21:19 | disposition home or self-care (01) ==
PROVIDERS: Physician Assistant; Emergency Provider Emergency Medicine; PCP Nurse Practitioner
DX: D25.9 Leiomyoma of uterus, unspecified (principal); N83.202 Unspecified ovarian cyst, left side; N93.8 Other specified abnormal uterine and vaginal bleeding; E05.00 Thyrotoxicosis with diffuse goiter without thyrotoxic crisis or storm
CPT/HCPCS: 36415; 76830; 81001; 84703; 85025; 85610; 87491; 87591; 99285